=== PATIENT | female | born 1950 | race Caucasian/White ===

== ENCOUNTER 2024-12-16 01:13 | Emergency (ER) | payer MEDICARE, SELFPAY ==
[2024-12-16 01:13] VITALS: BMI 25.8
--- NOTE | 2024-12-16 01:19 | EKG_ITS ---
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
[2024-12-16 01:33] VITALS: BP 175/88; PULSE 69; RESP 18; TEMP 37.2; O2SAT 96
--- NOTE | 2024-12-16 01:56 | XR_ITS ---
Examination: PA chest single view TECHNIQUE: Upright PA chest single view Date and time: December 16, 2024 0209 hours INDICATIONS: Chest pain beginning 2 days ago with shortness of breath and coughing FINDINGS: Mild prominence left ventricle Accentuation bronchovascular markings. No lobar pneumonia Prominent osteopenia IMPRESSION: Perihilar basilar bronchitis pattern
--- NOTE | 2024-12-16 01:58 | PD.EDRME ---
Rapid Medical Screening Exam E Arrival date/time: 12/16/24 01:13 74F with history of CVA, HTN, and DM presents to ED with 2 days of CP, SOB, and cough. Chief Complaint: Chest Pain Time Seen by Provider: 12/16/24 01:55 Vital signs: Vital Signs Temperature 98.9 F 12/16/24 01:33 Pulse Rate 69 12/16/24 01:33 Respiratory Rate 18 12/16/24 01:33 Blood Pressure 175/88 H 12/16/24 01:33 Pulse Oximetry (%) 96 12/16/24 01:33 Oxygen Delivery Method Room Air 12/16/24 01:33
[2024-12-16 02:39] LABS: Basophils # (Auto) 0.1 Thou/mm3 (0.0-0.2); Basophils % (Auto) 1 % (0-2.5); Eosinophils # (Auto) 0.2 Thou/mm3 (0.0-0.5); Eosinophils % (Auto) 2 % (0-10); Hematocrit 36.3 % (36.0-46.0); Hemoglobin 12.4 g/dL (12.0-16.0); Immature Granulocytes % (Auto) 0 % (0-0); Immature Granulocytes Auto 0.03 Thou/mm3 (0.00-0.00); Lymphocytes # (Auto) 2.5 Thou/mm3 (1.0-4.8); Lymphocytes % (Auto) 27 % (10-50); Mean Corpuscular HGB Conc 34.2 g/dl (31.0-37.0); Mean Corpuscular Volume 88 fL (80-100); Monocytes # (Auto) 0.7 Thou/mm3 (0.0-0.8); Monocytes % (Auto) 8 % (0-12); Neutrophils # (Auto) 5.8 Thou/mm3 (1.8-7.7); Neutrophils % (Auto) 62 % (37-80); Nucleated Red Blood Cell % 0 /100 WBC (0); Platelet Count 149 Thou/mm3 (140-440); RDW Standard Deviation 41.3 fL (36.4-46.3); Red Blood Count 4.14 Miln/mm3 (4.00-5.20); White Blood Count 9.4 Thou/mm3 (3.6-11.0)
[2024-12-16 02:43] LABS: B-Type Natriuretic Peptide 36 pg/mL (0-100)
[2024-12-16 02:54] LABS: Alanine Aminotransferase 12 U/L (10-49); Albumin, Serum 3.9 gm/dL (3.4-4.8); Albumin/Globulin Ratio 1.6 (1.2-2.2); Alkaline Phosphatase 104 U/L (46-116); Anion Gap 6 (7-16); Aspartate Amino Transferase 15 U/L (0-34); BUN/Creatinine Ratio 17 Ratio (12-20); Bilirubin,Total 0.4 mg/dL (0.3-1.2); Blood Urea Nitrogen 17 mg/dL (9-23); Calcium 9.3 mg/dL (8.3-10.6); Calcium (Corrected) 9.4 mg/dL (8.5-10.1); Chloride 108 mMol/L (98-107); Estimated Creatinine Clearance 51.1 mL/min (>60); Globulin 2.5 gm/dL (2.3-3.5); Glucose 260 mg/dL (74-106); Osmolality,Calculated 293 (275-295); Potassium 3.9 mMol/L (3.4-5.1); Procalcitonin < 0.04 ng/ml (0.0-0.49); Sodium 142 mMol/L (136-145); Total Protein 6.4 gm/dL (5.7-8.2); eGFR 59 See Note
[2024-12-16 03:10] LABS: Troponin I 0.104 ng/mL (0.0-0.045)
--- NOTE | 2024-12-16 03:25 | PD.EDCHEST ---
ED Chest Pain RME/HPI General Chief Complaint: Chest Pain Stated Complaint: CHEST PAIN Time Seen by Provider: 12/16/24 01:55 Arrival date/time: 12/16/24 01:13 RME / HPI RME / HPI narrative: 12/16/24 01:13 74F with history of CVA, HTN, and DM presents to ED with 2 days of CP, SOB, and cough. -------- Dr. Quintero?s Main ED Evaluation: 74yo female with a history of HTN, HLD, DM presents to the ED for complaints of chest pain and shortness of breath x 2 days. Patient states her chest pain got progressively worse tonight and was unable to tolerate it, so she came in for evaluation. No radiation or migration. Patient reports associated cough and chronic BLE cramps 2/2 her diabetic neuropathy. Patient denies any N/V/D, fever, chills, abdominal pain or any other associated symptoms. Denies any tobacco, alcohol or illicit drug use. Related Data Home Medications ?Medication ?Instructions ?Recorded ?Confirmed lisinopril 20 mg tablet 40 mg PO DAILY 06/09/21 04/14/24 sertraline 50 mg tablet 50 mg PO HS 04/14/24 04/14/24 Previous Rx's ?Medication ?Instructions ?Recorded blood sugar diagnostic (Accu-Chek #100 ea 08/26/22 SmartView Test Strips) blood-glucose meter (OneTouch #1 ea 08/26/22 Solutions Starter kit) lancets 23 gauge (Acti-Jag #200 ea 08/26/22 Lancets) pen needle, diabetic 31 gauge x #100 ea 08/26/2207/03 (1st Tier Unifine Pentips) aluminum-mag hydroxide-simethicone 30 ml PO QID PRN acid reflux #355 09/30/22 400 mg-400 mg-40 mg/5 mL oral susp mL (Mag-Al Plus Extra Strength) meclizine 50 mg tablet 50 mg PO BID PRN dizziness #14 tabs 04/12/24 blood-glucose sensor (FreeStyle #1 ea 04/17/24 Chandan 3 Plus Sensor device) blood-glucose,video news editor,cont #1 ea 04/17/24 (FreeStyle Chandan 3 Ringsted) insulin glargine 100 unit/mL (3 27 unit (0.27 mL) subcut HS 30 04/17/24 mL) subcutaneous pen days #15 mL metformin 500 mg tablet 500 mg PO BIDWMEAL #60 tabs 04/17/24 aspirin 81 mg tablet,delayed 81 mg PO QDAY #21 tabs 04/19/24 release clopidogrel 75 mg tablet (Plavix) 75 mg PO QDAY #30 tabs 04/19/24 levofloxacin 750 mg tablet 750 mg PO Q24H 5 days #5 tabs 12/16/24 Allergies Allergy/AdvReac Type Severity Reaction Status Date / Time Penicillins Allergy Severe Hives Verified 12/12/23 12:07 Review of Systems Review of Systems Systems Reviewed: All systems reviewed, normal except as documented Past Medical History Past Medical History NEUROLOGIC: Negative Neurological Disorders or Seizures CARDIAC: Positive Cardiac Disorders, Atherosclerotic Heart Disease, Hypercholesterolemia and Hypertension; Negative Myocardial Infarction, Cardiac Arrhythmia, Atrial Fibrillation, Angina, Heart Murmur, Coronary Artery Disease, Peripheral Vascular Disease, Aneurysm, Congestive Heart Failure, Congenital Heart Disease, Valvular Heart Disease, Rheumatic Fever, Cardiomyopathy, Edema, Pericarditis, Cellulitis, Deep Vein Thrombosis, Hypotension or Varicose Veins RESPIRATORY: Positive Asthma; Negative Chronic Obstructive Pulmonary Disease (COPD) GASTROINTESTINAL: Negative Gastrointestinal Disorders or Hepatitis GENITOURINARY: Negative Genitourinary Disorders or Renal Disease REPRODUCTIVE: Negative Pelvic Inflammatory Disease MUSCULOSKELETAL: Positive Fractures; Negative Muscular Dystrophy, Myasthenia Gravis, Marfan's Syndrome, Arthritis, Rheumatoid Arthritis, Osteoporosis, Degenerative Disk Disease, Gout, Scoliosis, Fibromyalgia, Degenerative Joint Disease, Osteomyelitis or Poliovirus ENT: Negative Cataracts, Glaucoma, Blind, Retinal Detachment, Macular Degeneration, Ear Infection or Deafness ENDOCRINE: Positive Diabetes Mellitus Type 2; Negative Endocrine Disorders, Diabetes Mellitus Type 1, Hypoglycemia, Roxy's Syndrome, [place]'s Disease, Hyperthyroidism, Hypothyroidism, Parathyroid Disease, Pituitary Disease, Systemic Lupus Erythematosus, Syndrome of Inappropriate Antidiuretic Hormone (SIADH), Adrenal Disease or Graves' Disease HEMATOLOGIC: Negative Blood Disorders or Sickle Cell Disease PSYCHO/SOCIAL: Positive Depression and Anxiety; Negative Psychiatric Problems, Schizophrenia, Recreational Drug Use, Bipolar Disorder, Self-Mutilation, Attention Deficit Disorder, Attention Deficit Hyperactivity Disorder, Depression, Post Traumatic Stress Disorder or Eating Disorder OTHER HISTORY: Positive Hospitalization and Falls; Negative Autoimmune Disease, Autism, Blood Transfusions, Blood Transfusion Reaction, Anesthesia Reactions, Organ Transplant, Chemotherapy, Radiation Therapy, Hyperbaric Therapy, MRSA, VRSA, Vancomycin-Resistant Enterococci, Human Immunodeficiency Virus (HIV), Chicken Pox, Measles, Mumps, Rubella (Persian Measles), Pertussis, Clostridium Difficile or Cancer Family History FAMILY HISTORY: Positive Family Cardiac Disorders; Negative Family Psychiatric Problems, Family Respiratory Disorders, Family Gastrointestinal Problems, Family Cancer, Family Surgery or Family Anesthesia Reaction Surgical History SURGICAL: Negative Cardiac Surgery, Pacemaker, Endocrine Surgery, Thyroidectomy, Ear Surgery, Tympanostomy Tube, Eye Surgery, Nose Surgery, Oral Surgery, Tonsillectomy, Adenoidectomy, Cochlear Implant, Corneal Transplant, Throat Surgery, Abdominal Surgery, Tracheostomy, Nephrectomy, Neurologic Surgery, Mastectomy or Organ Transplant Social History SMOKING STATUS: Never smoker SECOND HAND EXPOSURE: Yes ED Exam Narrative Physical exam: GEN. APPEARANCE: The patient is alert awake oriented X-3 in no distress, lying down comfortably, does not look ill/toxic. Patient has good eye contact. Patient is cooperative. VITALS: All vitals were reviewed and the pulse ox is 96% on room air which is normal according to my interpretation. HEENT: Normocephalic, atraumatic. Pupils are equal and reactive. Oral mucosa is moist. Patent Nares NECK: Supple, nontender, no thyromegaly, no meningismus, no JVD CHEST: Symmetrical, atraumatic, and with equal expansion , Nontender on palpation no deformity and no crepitus. CARDIOVASCULAR: Heart regular rhythm no murmur or gallop rub or extra beats. LUNGS: Clear to auscultation bilaterally with symmetrical chest rise. No laboring tachypnea or wheezing. No intercostal subcostal retraction. No rales and no rhonchi. ABDOMEN: Soft, flat, nontender to palpation, no guarding or rebound tenderness. There are no abnormal masses palpated. Active and normal bowel sounds. EXTREMITIES: Nontender. No edema. No cyanosis. Patient is able to move all 4 extremities well, with full ROM and good CSM. SKIN: Warm and dry, no jaundice or rashes noted. NEURO: Patient is GRULLON x 4, Cranial nerves II through XII grossly intact. There is no focal neurologic deficits noted. GCS is 15, PNS and ABATEMENT WORKER appear grossly intact. PSYCHIATRIC: Patient is in normal mood and affect. Course Course Course Narrative: CXR is ordered for determining the etiology of chest pain. Quality Measures none Orders Category Date Time Status Bedside COVID-19 Antigen Test NOW Care 12/16/24 01:57 Active Bedside Influenza A&B Antigen Test NOW Care 12/16/24 01:57 Completed EKG (ED ONLY) *Do not use* NOW Care 12/16/24 01:19 Completed EKG (ED Only) Stat Exams 12/16/24 01:19 Draft XR chest 1V portable Stat Exams 12/16/24 01:56 Taken B-Type Natriuretic Peptide Stat Lab 12/16/24 02:08 Completed CBC Stat Lab 12/16/24 02:08 Completed Comprehensive Metabolic Panel Stat Lab 12/16/24 02:08 Completed Procalcitonin Stat Lab 12/16/24 02:08 Completed Troponin I Stat Lab 12/16/24 02:08 Completed Troponin I Stat Lab 12/16/24 04:48 Completed HYDROcodone*/APAP 5/325 [[place] 5/325] Med 12/16/24 05:42 Discontinued 1 tab PO X1 ONE Levofloxacin/D5w 750Mg Ivpb [Levaquin Ivpb] Med 12/16/24 04:04 Discontinued 750 mg in 150 ml IV NOW Vital Signs Vital signs: Vital Signs Temperature 98.9 F 12/16/24 01:33 Pulse Rate 69 12/16/24 01:33 Respiratory Rate 18 12/16/24 01:33 Blood Pressure 175/88 H 12/16/24 01:33 Pulse Oximetry (%) 96 12/16/24 01:33 Oxygen Delivery Method Room Air 12/16/24 01:33 Chest Pain MDM Narrative MDM Narrative:: Scribe Attestation: 12/16/24 - Coco Vital am scribing for and in the presence of Dr. Quintero. Patient is a 73-year-old female seen emerged from concerns for shortness of breath and chest pain. Has a sick contact at home with pneumonia. Vital signs and exam as above. Concern for ACS with electrolyte abnormality bowel syndrome pneumonia among others. Ordered labs EKG chest x-ray after medication for symptomatic. Labs without any acute significant hematologic or metabolic abnormality. Patient troponin elevated, however not elevated beyond her baseline. EKG without evidence of ischemia or arrhythmia. Delta troponin downtrended. Chest x-ray with evidence of pneumonia. Provided patient with antibiotics, however evaluation patient exam with stable not in distress, tolerating oral intake, breathing room air. Will discharge home with close return precautions and follow-up with her primary care doctor Patient data External records reviewed:: [facility] previous records (Per chart review, patient was admitted here on 04/13/24 for acute right-sided weakness.) Clinical information provided by:: patient Social determinants that could affect healthcare access:: none Patient has the following chronic illnesses:: DM, HTN, HLD How is presenting disease/condition affected by chronic disease/condition?: uneffected by Evaluation data The following diagnostics were reviewed and interpreted by me:: lab results, radiology exam(s) and EKG tracing(s) Lab and/or radiology exams considered but not ordered:: none Interpretation Summary: COVID/Influenza negative. CBC normal, Glucose 260, Troponin 0.104 (which is chronic), BNP normal, Procalcitonin normal. Repeat Troponin is 0.106. CXR shows bilateral infiltrates, no pneumothorax, no other bony abnormalities, according to my interpretation. EKG done at 0132, NSR, rate of 68, normal intervals, nonspecific ST-T changes, no acute ischemia, according to my interpretation. Medications / Prescriptions Medications or Prescriptions considered but not ordered:: none Medication administrations:: Medication Administration History Discontinued Medications Hydrocodone Bitart/Acetaminophen (Hydrocodone/Apap 5/325 Tablet) 1 tab PO X1 ONE Stop: 12/16/24 05:43 Last Admin: 12/16/24 05:48 Dose: 1 tab Documented By: SHAMIR Levofloxacin/Dextrose (Levaquin Ivpb) 750 mg in 150 mls @ 100 mls/hr IV NOW ONE Stop: 12/16/24 05:33 Last Admin: 12/16/24 05:01 Dose: 100 mls/hr Documented By: DAMARIS see above Consultations Consultation(s) initiated? (list below): No Diagnosis Chest Pain Differential Diagnosis: other (ACS, arrhythmia, electrolyte abnormality, viral syndrome, pneumonia) Most likely diagnosis given after review of the tests above:: see clinical impression below Admission Indicated Admission indicated?: not indicated Admission Request Was there a request for admission?: No Disposition Plan Disposition Plan: Discharge Discharge Attestation Discharge Attestation: The patient and all family members were given an opportunity to ask questions and understood the discharge instructions. Discharge instructions specifically effects, indications for sooner follow up or return to the emergency department, and the expected course of current diagnosis. Patient condition: Stable Discharge Plan Plan Patient Disposition: HOME (Self Care) Prescriptions/Referrals Prescriptions/Med Rec: New levofloxacin 750 mg tablet 750 mg PO Q24H 5 Days Qty: 5 0RF No Action lisinopril 20 mg tablet 40 mg PO DAILY (DME) blood-glucose meter [Pagevamp Starter] Kit See Rx Instructions .Route Qty: 1 0RF Rx Instructions: As directed (DME) Accu-Chek SmartView Test Strip Strip See Rx Instructions .Route Qty: 100 2RF Rx Instructions: As directed (DME) Acti-Jag Lancets 23 gauge misc See Rx Instructions .Route Qty: 200 2RF Rx Instructions: As directed (DME) pen needle, diabetic [1st Tier Unifine Pentips] 31 gauge x 1/4 needle See Rx Instructions .Route Qty: 100 2RF Rx Instructions: As directed alum-mag hydroxide-simeth [Mag-Al Plus Extra Strength] 400-400-40 mg/5 mL Suspension 30 ml PO QID PRN (Reason: acid reflux) Qty: 355 1RF sertraline 50 mg tablet 50 mg PO HS Patient Comments: TAKE ONE TABLET BY MOUTH EVERY DAY insulin glargine 100 unit/mL (3 mL) insulin pen 27 unit subcut HS 30 Days Qty: 15 2RF metformin 500 mg tablet 500 mg PO BIDWMEAL Qty: 60 0RF (DME) FreeStyle Chandan 3 Ringsted Misc See Rx Instructions .ROUTE Qty: 1 0RF Rx Instructions: As directed (DME) FreeStyle Chandan 3 Plus Sensor Device See Rx Instructions .ROUTE Qty: 1 0RF Rx Instructions: As directed aspirin 81 mg tablet,delayed release (DR/EC) 81 mg PO QDAY Qty: 21 0RF clopidogrel [Plavix] 75 mg tablet 75 mg PO QDAY Qty: 30 0RF meclizine 50 mg tablet 50 mg PO BID PRN (Reason: dizziness) Qty: 14 0RF Referrals: Jovanny Jackson MD [Primary Care Provider] - In 1 week Problem List Clinical Impression: Pneumonia Patient/Caregiver Discharge Instructions Education Materials: ED Pneumonia (Adult) Print Language: Malay Stand Alone Forms: Kaylin Award Info., Patient Portal Info Letter
[2024-12-16] MEDS: LEVOFLOXACIN/D5W 750MG IVPB 750 MG/150 ML BAG 100 MG IV (05:01)
[2024-12-16] MEDS: HYDROcodone/APAP 5/325 TABLET 1 TAB PO (05:48)
[2024-12-16 05:50] VITALS: BP 177/87; PULSE 61; RESP 18; O2SAT 99
[2024-12-16 06:12] LABS: Troponin I 0.106 ng/mL (0.0-0.045)
[2024-12-16 06:48] VITALS: BP 177/87; O2SAT 99
== END 2024-12-16 06:50 | disposition home or self-care (01) ==
PROVIDERS: Physician Assistant; Emergency Provider Emergency Medicine; PCP Family Medicine
DX: J18.9 Pneumonia, unspecified organism (principal); I45.89 Other specified conduction disorders; R06.02 Shortness of breath; I10 Essential (primary) hypertension; E78.00 Pure hypercholesterolemia, unspecified; I25.10 Atherosclerotic heart disease of native coronary artery without angina pectoris; Z79.02 Long term (current) use of antithrombotics/antiplatelets
CPT/HCPCS: 36415; 71045; 80053; 83880; 84145; 84484; 85025; 87400; 87811; 93005; 96365; 99284; J1956; A9270

== ENCOUNTER 2024-12-22 04:12 | Emergency (ER) | payer MEDICARE, SELFPAY ==
[2024-12-22 04:13] VITALS: BMI 25.8
[2024-12-22 04:34] VITALS: BP 170/90; PULSE 60; RESP 16; TEMP 37.1; O2SAT 98
--- NOTE | 2024-12-22 04:43 | XR_ITS ---
Examination: CT cervical spine without contrast 2-D sagittal reconstructions 2-D coronal reconstructions 3-D reconstructions. Exam date and time:December 22, 2024 at 0601 hours INDICATIONS: Patient fell 3 days ago with injury to the neck, neck pain CTDI:vol (mGy) 7.91 DLP: (mGycm) 156 Technique: Multiple 2 mm axial sections of the cervical spine have been obtained. The coronal and sagittal reconstructions have been obtained. 3-D reconstructions have been obtained. Low dose protocols were performed. One or more of the following dose reduction techniques were used; automated exposure control, adjustment of the mA and/or KV according to patient size, use of iterative reconstruction technique. Findings: Axial sections demonstrate intact base of the skull. Advanced degenerative disc disease C5-C6 C1 exhibit satisfactory relationship to the odontoid. No acute cervical vertebral body fracture seen. Alignment posterior spinous processes satisfactory. Impression: No acute cervical fracture.
--- NOTE | 2024-12-22 04:43 | XR_ITS ---
Examination: CT chest, without intravenous contrast. CT abdomen, without intravenous contrast. CT pelvis, without intravenous contrast. 2-D sagittal and coronal reconstructions. 3-D reconstructions. Date and time of exam:December 22, 2024 at 0603 hours INDICATIONS: Patient fell 3 days ago with injury to the chest and abdomen, chest pain and abdomen pain CTDI vol (mgy) 7.70 DLP (MGycm)538 Technique: Multiple CT images, 3.0 mm slice thickness, obtained chest, abdomen, pelvis, with the high-resolution 64 slice scanner.. Sagittal and coronal 2-D reconstructions are obtained. 3-D reconstructions Low dose protocols were performed. One or more of the following dose reduction techniques were used; automated exposure control, adjustment of the mA and/or KV according to patient size, use of iterative reconstruction technique. Findings: Thoracic aorta and pulmonary arteries intact Trace pericardial thickening Bilateral areas of subsegmental atelectasis No pneumothorax No hemothorax The manubrium, the body of the sternum are intact No acute thoracic lumbar or sacral segment fractures are depicted No abdominal parenchymal laceration Abdominal aorta intact No free blood in the abdomen or pelvis 18mm mass lateral left breast 3:00 position with spiculated margins, axial image 64, stranding extending to the skin in the nipple region with enlarged left axillary lymph nodes, the largest lymph node 19 mm No visualized liver or splenic or renal laceration on this noncontrast study Abdominal aortic calcification no free blood in the abdomen Normal appendix Negative for pneumoperitoneum Retroverted uterus with markedly abnormal thickened endometrial stripe, at least 28 mm Urinary bladder intact Multiple bilateral old rib fractures Suspicious for nondisplaced acute fracture right fifth rib anteriorly image 104 Bones of the pelvis hips intact, old fractures left superior and inferior pubic rami IMPRESSION: Thoracic aorta pulmonary arteries intact No pneumothorax or hemothorax Suspicious for nondisplaced acute fracture right fifth rib anteriorly 18 mm spiculated mass left breast with left axillary lymphadenopathy suspicious for primary left breast cancer with metastatic lymphadenopathy Recommend diagnostic mammography bilateral breast sonography follow-up
--- NOTE | 2024-12-22 04:43 | XR_ITS ---
Examination: CT brain head without contrast. 2-D sagittal coronal reconstructions Date and time of exam:December 22, 2024 at 0559 hours INDICATIONS: Patient fell 3 days ago with injury to the head, head pain CTDI: vol (mGy):50.7 DLP: (mGycm):1013 Technique: Multiple CT axial sections of the brain have been obtained, 5 mm slice thickness. Contrast has not been administered. 2-D sagittal, coronal reconstructions have been obtained Low dose protocols were performed. One or more of the following dose reduction techniques were used; automated exposure control, adjustment of the mA and/or KV according to patient size, use of iterative reconstruction technique. Findings: No significant ventricular enlargement. Intra-axial or extra-axial hemorrhage density is not seen. No mass effect or midline shift Basal cisterns are not remarkable. Fourth ventricle is midline. Cranial vault intact. Impression: Negative for acute hemorrhage, mass effect or midline shift
--- NOTE | 2024-12-22 04:43 | PD.EDRME ---
Rapid Medical Screening Exam [facility] Arrival date/time: 12/22/24 04:12 74F with history of CVA, HTN, and DM presents to ED with head, neck, back and chest pain after she slipped and fell about 3 days ago. Patient denies LOC and N/V. Chief Complaint: Fall Vital signs: Vital Signs Temperature 98.8 F 12/22/24 04:34 Pulse Rate 60 12/22/24 04:34 Respiratory Rate 16 12/22/24 04:34 Blood Pressure 170/90 H 12/22/24 04:34 Pulse Oximetry (%) 98 12/22/24 04:34 Oxygen Delivery Method Room Air 12/22/24 04:34
--- NOTE | 2024-12-22 05:29 | PC.NURSE ---
PT COMING UP TO NURSES STATION, RAISING HER VOICE SAYING SHE CAME IN FOR CHEST PAIN AND THAT THIS HOSPITAL IS NOT DOING ANYTHING ABOUT IT, JUST PLACING HER IN THE WAITING ROOM TO . DOCUMENTING NURSE TOLD PT THE PROVIDER ORDERED SCANS FOR THE FALL SHE CAME IN COMPLAINING OF. PT THEN BEGAN TO SAY THAT SHES NOT WAITING ALL NIGHT FOR A ZUNIGA CT SCAN BECAUSE LAST TIME SHE WAS HERE SHE WAS HERE FOR 8 HOURS. PT WENT OUT SIDE THEN CAME RIGHT BACK IN DEMANDING EVERYONES NAMES TO BE WRITTEN DOWN FOR HER. DOCUMENTING NURSE TOLD PT HER NAME BUT THAT SHE WILL NOT WRITE IT DOWN FOR HER. PT FAMILY MEMBER TOLD PT TO CALM DOWN AND TOOK PT BACK OUTSIDE TO CALM DOWN.
--- NOTE | 2024-12-22 08:15 | XR_ITS ---
Examination: Breast ultrasound, unilateral, left complete Date and time of exam: December 22, 2024 0850 hours INDICATIONS: CT examination December 22, 2024 18 mm spiculated mass left breast with left axillary lymphadenopathy Technique: Real-time moore scale ultrasonographic imaging performed left breast including all 4 quadrants as well as nipple retroareolar and axillary region. Findings: 1:00 nodule left breast indistinct margins 15 x 13 x 18 mm Abnormal left axillary lymph nodes with architectural distortion IMPRESSION: BI-RADS Category 4: Suspicious for malignancy Suspicious mass 1:00 position left breast with abnormal left axillary lymphadenopathy Biopsy of the 1:00 nodule is needed to exclude breast carcinoma as well as biopsy of one of the abnormal left axillary lymph nodes Follow-up diagnostic mammography strongly recommended
[2024-12-22 08:31] LABS: Basophils # (Auto) 0.1 Thou/mm3 (0.0-0.2); Basophils % (Auto) 1 % (0-2.5); Eosinophils # (Auto) 0.3 Thou/mm3 (0.0-0.5); Eosinophils % (Auto) 3 % (0-10); Hemoglobin 13.6 g/dL (12.0-16.0); Immature Granulocytes % (Auto) 0 % (0-0); Immature Granulocytes Auto 0.03 Thou/mm3 (0.00-0.00); Lymphocytes # (Auto) 3.6 Thou/mm3 (1.0-4.8); Lymphocytes % (Auto) 35 % (10-50); Mean Corpuscular HGB Conc 33.2 g/dl (31.0-37.0); Mean Corpuscular Hemoglobin 29.8 pg (25.0-35.0); Mean Corpuscular Volume 90 fL (80-100); Monocytes # (Auto) 0.8 Thou/mm3 (0.0-0.8); Monocytes % (Auto) 7 % (0-12); Neutrophils # (Auto) 5.7 Thou/mm3 (1.8-7.7); Neutrophils % (Auto) 54 % (37-80); Nucleated Red Blood Cell % 0 /100 WBC (0); Platelet Count 183 Thou/mm3 (140-440); Red Blood Count 4.56 Miln/mm3 (4.00-5.20); White Blood Count 10.5 Thou/mm3 (3.6-11.0)
[2024-12-22 08:50] LABS: Sed Rate (ESR) 20 mm/hr (0-30)
[2024-12-22 09:12] LABS: Alanine Aminotransferase 14 U/L (10-49); Albumin, Serum 4.2 gm/dL (3.4-4.8); Albumin/Globulin Ratio 1.5 (1.2-2.2); Alkaline Phosphatase 98 U/L (46-116); Anion Gap 7 (7-16); Aspartate Amino Transferase 18 U/L (0-34); BUN/Creatinine Ratio 20 Ratio (12-20); Bilirubin,Total 0.7 mg/dL (0.3-1.2); Blood Urea Nitrogen 18 mg/dL (9-23); C-Reactive Protein < 0.5 mg/dL (0.0-0.9); Calcium 9.9 mg/dL (8.3-10.6); Calcium (Corrected) 9.9 mg/dL (8.5-10.1); Chloride 103 mMol/L (98-107); Creatinine (Component) 0.9 mg/dL (0.6-1.3); Estimated Creatinine Clearance 56.8 mL/min (>60); Globulin 2.8 gm/dL (2.3-3.5); Glucose 153 mg/dL (74-106); Osmolality,Calculated 284 (275-295); Potassium 4.2 mMol/L (3.4-5.1); Sodium 140 mMol/L (136-145); eGFR > 60 See Note
[2024-12-22 09:50] VITALS: BP 174/92; PULSE 60; RESP 18; TEMP 36.6; O2SAT 97
--- NOTE | 2024-12-22 09:56 | PD.EDFALL ---
ED Fall Injury RME/HPI General Chief Complaint: Fall Stated Complaint: FALL X 3 DAYS AGO Time Seen by Provider: 12/22/24 09:36 Arrival date/time: 12/22/24 04:12 74F with history of CVA, HTN, and DM presents to ED with head, neck, back and chest pain after she slipped and fell about 3 days ago. Patient denies LOC and N/V. Limitations: no limitations RME / HPI RME / HPI Narrative: 12/22/24 04:12 74F with history of CVA, HTN, and DM presents to ED with head, neck, back and chest pain after she slipped and fell about 3 days ago. Patient denies LOC and N/V. Related Data Home Medications ?Medication ?Instructions ?Recorded ?Confirmed lisinopril 20 mg tablet 40 mg PO DAILY 06/09/21 04/14/24 sertraline 50 mg tablet 50 mg PO HS 04/14/24 04/14/24 Previous Rx's ?Medication ?Instructions ?Recorded blood sugar diagnostic (Accu-Chek #100 ea 08/26/22 SmartView Test Strips) blood-glucose meter (OneTouch #1 ea 08/26/22 Solutions Starter kit) lancets 23 gauge (Acti-Jag #200 ea 08/26/22 Lancets) pen needle, diabetic 31 gauge x #100 ea 08/26/2207/03 (1st Tier Unifine Pentips) aluminum-mag hydroxide-simethicone 30 ml PO QID PRN acid reflux #355 09/30/22 400 mg-400 mg-40 mg/5 mL oral susp mL (Mag-Al Plus Extra Strength) meclizine 50 mg tablet 50 mg PO BID PRN dizziness #14 tabs 04/12/24 blood-glucose sensor (FreeStyle #1 ea 04/17/24 Chandan 3 Plus Sensor device) blood-glucose,transportation technician,cont #1 ea 04/17/24 (FreeStyle Chandan 3 [place]) insulin glargine 100 unit/mL (3 27 unit (0.27 mL) subcut HS 30 04/17/24 mL) subcutaneous pen days #15 mL metformin 500 mg tablet 500 mg PO BIDWMEAL #60 tabs 04/17/24 aspirin 81 mg tablet,delayed 81 mg PO QDAY #21 tabs 04/19/24 release clopidogrel 75 mg tablet (Plavix) 75 mg PO QDAY #30 tabs 04/19/24 Allergies Allergy/AdvReac Type Severity Reaction Status Date / Time Penicillins Allergy Severe Hives Verified 12/12/23 12:07 Review of Systems Review of Systems Systems Reviewed: All systems reviewed, normal except as documented Constitutional Constitutional: Reports system reviewed and no additional complaints, except as documented, Denies fever(s) and Denies headache(s) Eyes Eyes: Reports system reviewed and no additional complaints, except as documented and Denies blurry vision ENT Ears, Nose, Mouth, and Throat: Reports system reviewed and no additional complaints, except as documented, Denies headache(s), Denies nasal congestion, Denies nasal discharge and Reports neck pain Cardiovascular Cardiovascular: Reports system reviewed and no additional complaints, except as documented, Denies chest pain and Denies dyspnea Respiratory Respiratory: Reports system reviewed and no additional complaints, except as documented, Denies chest congestion, Denies cough and Denies dyspnea Gastrointestinal Gastrointestinal: Reports system reviewed and no additional complaints, except as documented and Denies abdominal pain Musculoskeletal Musculoskeletal: Reports system reviewed and no additional complaints, except as documented, Denies arthralgias, Reports back pain, Denies deformity, Denies joint swelling, Reports neck pain, Denies numbness, Denies stiffness and Denies tingling Integumentary/Breasts Skin/Breast: Reports system reviewed and no additional complaints, except as documented and Denies rash Neurologic Neurologic: Reports system reviewed and no additional complaints, except as documented, Reports as per HPI, Denies headache(s), Denies numbness and Denies tingling Past Medical History Past Medical History NEUROLOGIC: Negative Neurological Disorders or Seizures CARDIAC: Positive Cardiac Disorders, Atherosclerotic Heart Disease, Hypercholesterolemia and Hypertension; Negative Myocardial Infarction, Cardiac Arrhythmia, Atrial Fibrillation, Angina, Heart Murmur, Coronary Artery Disease, Peripheral Vascular Disease, Aneurysm, Congestive Heart Failure, Congenital Heart Disease, Valvular Heart Disease, Rheumatic Fever, Cardiomyopathy, Edema, Pericarditis, Cellulitis, Deep Vein Thrombosis, Hypotension or Varicose Veins RESPIRATORY: Positive Asthma; Negative Chronic Obstructive Pulmonary Disease (COPD) GASTROINTESTINAL: Negative Gastrointestinal Disorders or Hepatitis GENITOURINARY: Negative Genitourinary Disorders or Renal Disease REPRODUCTIVE: Negative Pelvic Inflammatory Disease MUSCULOSKELETAL: Positive Fractures; Negative Muscular Dystrophy, Myasthenia Gravis, Marfan's Syndrome, Arthritis, Rheumatoid Arthritis, Osteoporosis, Degenerative Disk Disease, Gout, Scoliosis, Fibromyalgia, Degenerative Joint Disease, Osteomyelitis or Poliovirus ENT: Negative Cataracts, Glaucoma, Blind, Retinal Detachment, Macular Degeneration, Ear Infection or Deafness ENDOCRINE: Positive Diabetes Mellitus Type 2; Negative Endocrine Disorders, Diabetes Mellitus Type 1, Hypoglycemia, Roxy's Syndrome, [place]'s Disease, Hyperthyroidism, Hypothyroidism, Parathyroid Disease, Pituitary Disease, Systemic Lupus Erythematosus, Syndrome of Inappropriate Antidiuretic Hormone (SIADH), Adrenal Disease or Graves' Disease HEMATOLOGIC: Negative Blood Disorders or Sickle Cell Disease PSYCHO/SOCIAL: Positive Depression and Anxiety; Negative Psychiatric Problems, Schizophrenia, Recreational Drug Use, Bipolar Disorder, Self-Mutilation, Attention Deficit Disorder, Attention Deficit Hyperactivity Disorder, Depression, Post Traumatic Stress Disorder or Eating Disorder OTHER HISTORY: Positive Hospitalization and Falls; Negative Autoimmune Disease, Autism, Blood Transfusions, Blood Transfusion Reaction, Anesthesia Reactions, Organ Transplant, Chemotherapy, Radiation Therapy, Hyperbaric Therapy, MRSA, VRSA, Vancomycin-Resistant Enterococci, Human Immunodeficiency Virus (HIV), Chicken Pox, Measles, Mumps, Rubella ([place]ish Measles), Pertussis, Clostridium Difficile or Cancer Family History FAMILY HISTORY: Positive Family Cardiac Disorders; Negative Family Psychiatric Problems, Family Respiratory Disorders, Family Gastrointestinal Problems, Family Cancer, Family Surgery or Family Anesthesia Reaction Surgical History SURGICAL: Negative Cardiac Surgery, Pacemaker, Endocrine Surgery, Thyroidectomy, Ear Surgery, Tympanostomy Tube, Eye Surgery, Nose Surgery, Oral Surgery, Tonsillectomy, Adenoidectomy, Cochlear Implant, Corneal Transplant, Throat Surgery, Abdominal Surgery, Tracheostomy, Nephrectomy, Neurologic Surgery, Mastectomy or Organ Transplant Social History SMOKING STATUS: Never smoker SECOND HAND EXPOSURE: Yes ED Exam General Limitations: Present no limitations General appearance: Present alert and in no apparent distress Head Head exam: Present atraumatic, normocephalic and normal inspection Eye Eye exam: Present normal appearance, PERRL and EOMI; Absent conjunctival injection ENT ENT exam: Present normal exam, normal oropharynx and mucous membranes moist Neck Neck exam: Present normal inspection, full ROM, trachea midline and tenderness Chest Chest inspection: Present normal inspection and symmetric chest wall rise Respiratory Respiratory exam: Present normal lung sounds bilaterally; Absent respiratory distress Cardiovascular Cardiovascular exam: Present regular rate, normal rhythm and normal heart sounds Abdominal Exam Abdominal exam: Present soft and normal bowel sounds; Absent distention, tenderness, guarding, rebound or rigidity Extremities Exam Extremities exam: Present normal inspection and full ROM Back Exam Back exam: Present normal inspection and full ROM Neurological Exam Neurological exam: Present alert, oriented X3, CN II-XII intact, normal gait and reflexes normal; Absent motor sensory deficit Psychiatric Psychiatric exam: Present normal affect and normal mood Skin Skin exam: Present warm, dry, intact and normal color; Absent rash Course Quality Measures none Orders Category Date Time Status CT cervical spine wo con Stat Exams 12/22/24 04:[address] chest abdomen pelvis wo Stat Exams 12/22/24 04:[address] head/brain wo con Stat Exams 12/22/24 04:43 Completed US breast LT complete Stat Exams 12/22/24 08:15 Completed CBC [CBC] Stat Lab 12/22/24 08:21 Completed CMP [Comprehensive Metabolic Panel] Stat Lab 12/22/24 08:21 Completed CRP [C-Reactive Protein] Stat Lab 12/22/24 08:21 Completed ESR [Sed Rate (ESR)] Stat Lab 12/22/24 08:21 Completed Vital Signs Vital signs: Vital Signs Temperature 98.8 F 12/22/24 04:34 Pulse Rate 60 12/22/24 04:34 Respiratory Rate 16 12/22/24 04:34 Blood Pressure 170/90 H 12/22/24 04:34 Pulse Oximetry (%) 98 12/22/24 04:34 Oxygen Delivery Method Room Air 12/22/24 04:34 O2 saturation 98% on room air with normal limits Fall MDM Narrative MDM Narrative:: 74F with history of CVA, HTN, and DM presents to ED with head, neck, back and chest pain after she slipped and fell about 3 days ago. Patient denies LOC and N/V. On exam patient well-appearing patient does not appear toxic Imaging obtained incidental finding was noted on CT scan abnormality in the breast. Ultrasound of the breast obtained which is concerning for carcinoma Patient given a copy of her ultrasound as well as CT reports patient instructed to follow-up with her primary care doctor within the next 24 to 48 hours she must have close follow-up explained to the patient failure to do so can result in poor outcome including patient states understanding Patient data External records reviewed:: [facility] [place] previous records Clinical information provided by:: patient Social determinants that could affect healthcare access:: none Patient has the following chronic illnesses:: See history How is presenting disease/condition affected by chronic disease/condition?: uneffected by Evaluation data The following diagnostics were reviewed and interpreted by me:: radiology exam(s) Lab and/or radiology exams considered but not ordered:: Radiology obtain Interpretation Summary: Reviewed by me Medications / Prescriptions Medications or Prescriptions considered but not ordered:: Given Medication administrations:: Given Consultations Consultation(s) initiated? (list below): No Diagnosis Fall Differential Diagnosis: other (Back pain, rib pain, breast pain, carcinoma) Most likely diagnosis given after review of the tests above:: Back pain, rib pain, breast pain Admission Indicated Admission indicated?: not indicated Admission Request Was there a request for admission?: No Disposition Plan Disposition Plan: Discharge Discharge Attestation Discharge Attestation: The patient and all family members were given an opportunity to ask questions and understood the discharge instructions. Discharge instructions specifically effects, indications for sooner follow up or return to the emergency department, and the expected course of current diagnosis. Patient condition: Stable Discharge Plan Plan Patient Disposition: HOME (Self Care) Discharge Disposition comment: Stable Prescriptions/Referrals Prescriptions/Med Rec: No Action lisinopril 20 mg tablet 40 mg PO DAILY (DME) blood-glucose meter [[employer] Starter] Kit See Rx Instructions .Route Qty: 1 0RF Rx Instructions: As directed (DME) Accu-Chek SmartView Test Strip Strip See Rx Instructions .Route Qty: 100 2RF Rx Instructions: As directed (DME) Acti-Jag Lancets 23 gauge misc See Rx Instructions .Route Qty: 200 2RF Rx Instructions: As directed (DME) pen needle, diabetic [1st Tier Unifine Pentips] 31 gauge x 1/4 needle See Rx Instructions .Route Qty: 100 2RF Rx Instructions: As directed alum-mag hydroxide-simeth [Mag-Al Plus Extra Strength] 400-400-40 mg/5 mL Suspension 30 ml PO QID PRN (Reason: acid reflux) Qty: 355 1RF sertraline 50 mg tablet 50 mg PO HS Patient Comments: TAKE ONE TABLET BY MOUTH EVERY DAY insulin glargine 100 unit/mL (3 mL) insulin pen 27 unit subcut HS 30 Days Qty: 15 2RF metformin 500 mg tablet 500 mg PO BIDWMEAL Qty: 60 0RF (DME) FreeStyle Chandan 3 [place] Misc See Rx Instructions .ROUTE Qty: 1 0RF Rx Instructions: As directed (DME) FreeStyle Chandan 3 Plus Sensor Device See Rx Instructions .ROUTE Qty: 1 0RF Rx Instructions: As directed aspirin 81 mg tablet,delayed release (DR/EC) 81 mg PO QDAY Qty: 21 0RF clopidogrel [Plavix] 75 mg tablet 75 mg PO QDAY Qty: 30 0RF meclizine 50 mg tablet 50 mg PO BID PRN (Reason: dizziness) Qty: 14 0RF Referrals: Jovanny Jackson MD [Primary Care Provider] - In 1 week Problem List Clinical Impression: Closed head injury, Fall, Breast mass, left Patient/Caregiver Discharge Instructions Education Materials: After a Concussion Additional Instructions: Please follow up with your primary care doctor in the next 24-48hrs for any worsening symptoms return here immediately Please bring copy of your CT report as well as your ultrasound report to your primary care doctor within the next 24 to 48 hours you must have close follow-up failure to do so can result in a poor outcome including Print Language: Guamanian Stand Alone Forms: Kaylin Award Info., Patient Portal Info Letter PA/MONKEY TRAINER Supervising Physician JOSAFAT/ROSEMARY Supervising Physician: dr hassan
== END 2024-12-22 10:05 | disposition home or self-care (01) ==
PROVIDERS: Nurse Practitioner Primary Care; Emergency Provider Emergency Medicine; PCP Family Medicine
DX: S09.90XA Unspecified injury of head, initial encounter (principal); W01.0XXA Fall on same level from slipping, tripping and stumbling without subsequent striking against object, initial encounter; Z86.73 Personal history of transient ischemic attack (TIA), and cerebral infarction without residual deficits; R59.0 Localized enlarged lymph nodes; N63.21 Unspecified lump in the left breast, upper outer quadrant; I10 Essential (primary) hypertension; E11.9 Type 2 diabetes mellitus without complications
CPT/HCPCS: 36415; 70450; 71250; 72125; 74176; 76641; 80053; 85025; 85652; 86140; 99284

== ENCOUNTER 2025-02-23 22:34 | Emergency (ER) | payer OTHER, SELFPAY ==
[2025-02-23 22:36] VITALS: BMI 25.8
[2025-02-23 22:55] VITALS: BP 148/69; PULSE 73; RESP 16; TEMP 36.6; O2SAT 95
--- NOTE | 2025-02-23 23:23 | XR_ITS ---
Examination: CT brain head without contrast. 2-D sagittal coronal reconstructions Date and time of exam:February 23, 2025 11:39 PM Comparison December 22, 2024 Ground-level fall today with injury to the head, head pain CTDI: vol (mGy):50.1 DLP: (mGycm):990 Technique: Multiple CT axial sections of the brain have been obtained, 5 mm slice thickness. Contrast has not been administered. 2-D sagittal, coronal reconstructions have been obtained Low dose protocols were performed. One or more of the following dose reduction techniques were used; automated exposure control, adjustment of the mA and/or KV according to patient size, use of iterative reconstruction technique. Findings: No significant ventricular enlargement. Posterior right scalp hematoma Intra-axial or extra-axial hemorrhage density is not seen. No mass effect or midline shift Basal cisterns are not remarkable. Fourth ventricle is midline. Cranial vault intact. Impression: Negative for acute hemorrhage, mass effect or midline shift
--- NOTE | 2025-02-23 23:23 | XR_ITS ---
Examination: CT cervical spine without contrast 2-D sagittal reconstructions 2-D coronal reconstructions 3-D reconstructions. Exam date and time:February 23, 2025 11:38 PM. INDICATIONS: Ground-level fall today with into the neck, neck pain CTDI:vol (mGy) 12.9 DLP: (mGycm) 260 Technique: Multiple 2 mm axial sections of the cervical spine have been obtained. The coronal and sagittal reconstructions have been obtained. 3-D reconstructions have been obtained. Low dose protocols were performed. One or more of the following dose reduction techniques were used; automated exposure control, adjustment of the mA and/or KV according to patient size, use of iterative reconstruction technique. Findings: Axial sections demonstrate intact base of the skull. C1 exhibit satisfactory relationship to the odontoid. No acute cervical vertebral body fracture seen. Alignment posterior spinous processes satisfactory. Advanced degenerative disc disease C5-C6, C6-C7 Impression: No acute cervical fracture.
--- NOTE | 2025-02-23 23:23 | XR_ITS ---
Examination: Ribs, right, with PA chest, 5 views Technique: Chest PA, RIBS AP, RPO, LPO, AP coned lower ribs 5 views Exam date and time: February 23, 2025 11:36 PM INDICATIONS: Patient fell today with into the right chest, right rib pain. FINDINGS: Parenchymal scarring left lower lobe unchanged compared with December 16, 2024 Normal heart size No pneumothorax Moderate osteopenia Fractures right 10th and 11th ribs in the midaxillary line which appear old, clinical correlation advised Impression: No pneumothorax. Old appearing fractures right 10th and 11th ribs in the midaxillary line, clinical correlation advised
--- NOTE | 2025-02-23 23:23 | EDRME_ITS ---
Rapid Medical Screening Exam FORMERLY [facility], [facility]–1983 Arrival date/time: 02/23/25 22:34 74F with history of CVA, HTN, and DM presents to ED with head, neck, and R rib pain after she fell off her porch. Chief Complaint: Fall Time Seen by Provider: 02/23/25 23:24 Vital signs: Vital Signs Temperature 97.9 F 02/23/25 22:55 Pulse Rate 73 02/23/25 22:55 Respiratory Rate 16 02/23/25 22:55 Blood Pressure 148/69 H 02/23/25 22:55 Pulse Oximetry (%) 95 02/23/25 22:55 Oxygen Delivery Method Room Air 02/23/25 22:55
[2025-02-24] MEDS: HYDROcodone/APAP 5/325 TABLET 1 TAB PO (00:01)
--- NOTE | 2025-02-24 01:27 | PD.EDFALL ---
ED Fall Injury RME/HPI General Chief Complaint: Fall Stated Complaint: FALL, HEAD INJURY, RIGHT SIDE HURTS Time Seen by Provider: 02/23/25 23:24 Arrival date/time: 02/23/25 22:34 RME / HPI RME / HPI Narrative: 02/23/25 22:34 74F with history of CVA, HTN, and DM presents to ED with head, neck, and R rib pain after she fell off her porch. Dr. Davis?s Main ED Evaluation: 74yo female s/p ground-level fall, striking her right posterior occipital scalp and feeling dazed for 10 minutes following impact. No LOC. Patient notes injuring her right hip and lateral chest. She typically ambulates with a walker. Related Data Home Medications ?Medication ?Instructions ?Recorded ?Confirmed lisinopril 20 mg tablet 40 mg PO DAILY 06/09/21 04/14/24 sertraline 50 mg tablet 50 mg PO HS 04/14/24 04/14/24 Previous Rx's ?Medication ?Instructions ?Recorded blood sugar diagnostic (Accu-Chek #100 ea 08/26/22 SmartView Test Strips) blood-glucose meter (OneTouch #1 ea 08/26/22 Solutions Starter kit) lancets 23 gauge (Acti-Jag #200 ea 08/26/22 Lancets) pen needle, diabetic 31 gauge x #100 ea 08/26/2207/03 (1st Tier Unifine Pentips) aluminum-mag hydroxide-simethicone 30 ml PO QID PRN acid reflux #355 09/30/22 400 mg-400 mg-40 mg/5 mL oral susp mL (Mag-Al Plus Extra Strength) meclizine 50 mg tablet 50 mg PO BID PRN dizziness #14 tabs 04/12/24 blood-glucose sensor (FreeStyle #1 ea 04/17/24 Chandan 3 Plus Sensor device) blood-glucose,administrator health care facility,cont #1 ea 04/17/24 (FreeStyle Chandan 3 [place]) insulin glargine 100 unit/mL (3 27 unit (0.27 mL) subcut HS 30 04/17/24 mL) subcutaneous pen days #15 mL metformin 500 mg tablet 500 mg PO BIDWMEAL #60 tabs 04/17/24 aspirin 81 mg tablet,delayed 81 mg PO QDAY #21 tabs 04/19/24 release clopidogrel 75 mg tablet (Plavix) 75 mg PO QDAY #30 tabs 04/19/24 acetaminophen 300 mg-codeine 15 mg 1 tab PO Q8H PRN pain #14 tabs 02/24/25 tablet Allergies Allergy/AdvReac Type Severity Reaction Status Date / Time Penicillins Allergy Severe Hives Verified 02/23/25 22:36 Review of Systems Review of Systems Systems Reviewed: All systems reviewed, normal except as documented Past Medical History Past Medical History NEUROLOGIC: Negative Neurological Disorders or Seizures CARDIAC: Positive Cardiac Disorders, Atherosclerotic Heart Disease, Hypercholesterolemia and Hypertension; Negative Myocardial Infarction, Cardiac Arrhythmia, Atrial Fibrillation, Angina, Heart Murmur, Coronary Artery Disease, Peripheral Vascular Disease, Aneurysm, Congestive Heart Failure, Congenital Heart Disease, Valvular Heart Disease, Rheumatic Fever, Cardiomyopathy, Edema, Pericarditis, Cellulitis, Deep Vein Thrombosis, Hypotension or Varicose Veins RESPIRATORY: Positive Asthma; Negative Chronic Obstructive Pulmonary Disease (COPD) GASTROINTESTINAL: Negative Gastrointestinal Disorders or Hepatitis GENITOURINARY: Negative Genitourinary Disorders or Renal Disease REPRODUCTIVE: Negative Pelvic Inflammatory Disease MUSCULOSKELETAL: Positive Fractures; Negative Muscular Dystrophy, Myasthenia Gravis, Marfan's Syndrome, Arthritis, Rheumatoid Arthritis, Osteoporosis, Degenerative Disk Disease, Gout, Scoliosis, Fibromyalgia, Degenerative Joint Disease, Osteomyelitis or Poliovirus ENT: Negative Cataracts, Glaucoma, Blind, Retinal Detachment, Macular Degeneration, Ear Infection or Deafness ENDOCRINE: Positive Diabetes Mellitus Type 2; Negative Endocrine Disorders, Diabetes Mellitus Type 1, Hypoglycemia, Roxy's Syndrome, Sweet Grass's Disease, Hyperthyroidism, Hypothyroidism, Parathyroid Disease, Pituitary Disease, Systemic Lupus Erythematosus, Syndrome of Inappropriate Antidiuretic Hormone (SIADH), Adrenal Disease or Graves' Disease HEMATOLOGIC: Negative Blood Disorders or Sickle Cell Disease PSYCHO/SOCIAL: Positive Depression and Anxiety; Negative Psychiatric Problems, Schizophrenia, Recreational Drug Use, Bipolar Disorder, Self-Mutilation, Attention Deficit Disorder, Attention Deficit Hyperactivity Disorder, Depression, Post Traumatic Stress Disorder or Eating Disorder OTHER HISTORY: Positive Hospitalization and Falls; Negative Autoimmune Disease, Autism, Blood Transfusions, Blood Transfusion Reaction, Anesthesia Reactions, Organ Transplant, Chemotherapy, Radiation Therapy, Hyperbaric Therapy, MRSA, VRSA, Vancomycin-Resistant Enterococci, Human Immunodeficiency Virus (HIV), Chicken Pox, Measles, Mumps, Rubella (Faroese Measles), Pertussis, Clostridium Difficile or Cancer Family History FAMILY HISTORY: Positive Family Cardiac Disorders; Negative Family Psychiatric Problems, Family Respiratory Disorders, Family Gastrointestinal Problems, Family Cancer, Family Surgery or Family Anesthesia Reaction Surgical History SURGICAL: Negative Cardiac Surgery, Pacemaker, Endocrine Surgery, Thyroidectomy, Ear Surgery, Tympanostomy Tube, Eye Surgery, Nose Surgery, Oral Surgery, Tonsillectomy, Adenoidectomy, Cochlear Implant, Corneal Transplant, Throat Surgery, Abdominal Surgery, Tracheostomy, Nephrectomy, Neurologic Surgery, Mastectomy or Organ Transplant Social History SMOKING STATUS: Never smoker SECOND HAND EXPOSURE: Yes ED Exam Narrative Physical exam: GENERAL APPEARANCE: alert and oriented x 4, well-developed, well-nourished, no acute distress VITALS: All vitals were reviewed and the pulse ox is 95% on room air, which is normal according to my interpretation. HEENT: Normocephalic, 4 x 3 cm tender right posterior occipital subcutaneous nodule without step-off; pupils equal, round, reactive to light; EOMI; mucous membranes pink, moist; oropharynx clear NECK: Supple, mild midline cervical spine tenderness LUNGS: CTABL; no wheezes, no rales, no rhonchi HEART: Regular rate, regular rhythm; normal S1, S2; no murmurs CHEST: mild right lateral chest wall tenderness at the mid axillary line without crepitus or step-off ABDOMEN: non distended; normal BS; soft, no tenderness, no guarding, no rebound; no masses, no organomegaly, no hernia BACK: no CVA tenderness EXTREMITIES: atraumatic; no edema NEUROLOGIC: awake; alert and oriented x4; GCS 15, fully recalls the event; cranial nerves II-XII grossly intact; no focal sensory or motor deficits, no cerebellar findings, gait not observed PSYCHIATRIC: appropriate mood and affect SKIN: warm, dry, normal color; no rashes Course Quality Measures none Orders Category Date Time Status CT cervical spine wo con Stat Exams 02/23/25 23:[address] head/brain wo con Stat Exams 02/23/25 23:23 Completed XR hip RT w pelvis 2-3V Stat Exams 02/24/25 01:46 Taken XR ribs RT min 3V w CXR1V Stat Exams 02/23/25 23:23 Completed HYDROcodone*/APAP 5/325 [[place] 5/325] Med 02/23/25 23:23 Discontinued 1 tab PO X1 ONE Vital Signs Vital signs: Vital Signs Temperature 97.9 F 02/23/25 22:55 Pulse Rate 73 02/23/25 22:55 Respiratory Rate 16 02/23/25 22:55 Blood Pressure 148/69 H 02/23/25 22:55 Pulse Oximetry (%) 95 02/23/25 22:55 Oxygen Delivery Method Room Air 02/23/25 22:55 Fall MDM Narrative MDM Narrative:: Scribe Attestation: 02/24/25 - Coco Vital am scribing for and in the presence of Dr. Davis. 74yo female s/p ground-level fall, striking her right posterior occipital scalp and feeling dazed for 10 minutes following impact. No LOC. Please see PE findings. Labs deferred. CT brain obtained and demonstrated right posterior scalp hematoma, otherwise, negative for acute intracranial event. CT cervical spin demonstrated advanced DJD of lower c-spine, but no fracture. Rib series demonstrated potential fractures of right 10-11th ribs, which appear to be old, but no evidence of pneumothorax. Right hip x-rays pending. PO narcotic analgesics with [id number]-bu-[id number] relief and remained hemodynamically and neurologically stable. Will review hip x-ray and if negative, will discharge home and treat consecutively. Dx: concussion, multiple contusions. Dispo: include short course narcotics and anti-inflammatory Patient data External records reviewed:: [facility] previous records (Per chart review, patient was seen here on 12/22/24 for breast mass.) Clinical information provided by:: patient Social determinants that could affect healthcare access:: none Patient has the following chronic illnesses:: CVA with mild right-sided residual deficits, HTN, HLD How is presenting disease/condition affected by chronic disease/condition?: uneffected by Evaluation data The following diagnostics were reviewed and interpreted by me:: radiology exam(s) (Right hip x-ray shows no pelvic fracture, no hip dislocation, no hip fracture, according to my interpretation.) Lab and/or radiology exams considered but not ordered:: none Interpretation Summary: [facility] Signed Patient: JENELLE GONZAELZ. Record#: [id number] Birthdate: 1950 Age/Sex: 74 / F Location: [facility] Attending Dr: Ordering Physician: Jhony Shah PA-C Date of Service: 02/23/25 Procedure(s): XR ribs RT min 3V w CXR1V Accession Number(s): [id number] cc: Forrest Rodriguez MD; Jhony Shah PA-C~ Examination: Ribs, right, with PA chest, 5 views Technique: Chest PA, RIBS AP, RPO, LPO, AP coned lower ribs 5 views Exam date and time: February 23, 2025 11:36 PM INDICATIONS: Patient fell today with into the right chest, right rib pain. FINDINGS: Parenchymal scarring left lower lobe unchanged compared with December 16, 2024 Normal heart size No pneumothorax Moderate osteopenia Fractures right 10th and 11th ribs in the midaxillary line which appear old, clinical correlation advised Impression: No pneumothorax. Old appearing fractures right 10th and 11th ribs in the midaxillary line, clinical correlation advised Dictated By: Forrest Rodriguez MD Signed By: <Electronically signed by Forrest Rodriguez MD in [place]> 02/24/25 0009 [facility] Signed Patient: JENELLE GONZALEZ. Record#: [id number] Birthdate: 1950 Age/Sex: 74 / F Location: [facility] Attending Dr: Ordering Physician: Jhony Shah PA-C Date of Service: 02/23/25 Procedure(s): CT head/brain wo con Accession Number(s): [id number] cc: Forrest Rodriguez MD; Jhony Shah PA-C~ Examination: CT brain head without contrast. 2-D sagittal coronal reconstructions Date and time of exam:February 23, 2025 11:39 PM Comparison December 22, 2024 Ground-level fall today with injury to the head, head pain CTDI: vol (mGy):50.1 DLP: (mGycm):990 Technique: Multiple CT axial sections of the brain have been obtained, 5 mm slice thickness. Contrast has not been administered. 2-D sagittal, coronal reconstructions have been obtained Low dose protocols were performed. One or more of the following dose reduction techniques were used; automated exposure control, adjustment of the mA and/or KV according to patient size, use of iterative reconstruction technique. Findings: No significant ventricular enlargement. Posterior right scalp hematoma Intra-axial or extra-axial hemorrhage density is not seen. No mass effect or midline shift Basal cisterns are not remarkable. Fourth ventricle is midline. Cranial vault intact. Impression: Negative for acute hemorrhage, mass effect or midline shift Dictated By: Forrest Rodriguez MD Signed By: <Electronically signed by Forrest Rodriguez MD in OV> 02/24/25 0002 [facility] Signed Patient: JENELLE GONZALEZ. Record#: [id number] Birthdate: 1950 Age/Sex: 74 / F Location: [facility] Attending Dr: Ordering Physician: Jhony Sahh PA-C Date of Service: 02/23/25 Procedure(s): CT cervical spine wo con Accession Number(s): [id number] cc: Forrest Rodriguez MD; Jhony Shah PA-C~ Examination: CT cervical spine without contrast 2-D sagittal reconstructions 2-D coronal reconstructions 3-D reconstructions. Exam date and time:February 23, 2025 11:38 PM. INDICATIONS: Ground-level fall today with into the neck, neck pain CTDI:vol (mGy) 12.9 DLP: (mGycm) 260 Technique: Multiple 2 mm axial sections of the cervical spine have been obtained. The coronal and sagittal reconstructions have been obtained. 3-D reconstructions have been obtained. Low dose protocols were performed. One or more of the following dose reduction techniques were used; automated exposure control, adjustment of the mA and/or KV according to patient size, use of iterative reconstruction technique. Findings: Axial sections demonstrate intact base of the skull. C1 exhibit satisfactory relationship to the odontoid. No acute cervical vertebral body fracture seen. Alignment posterior spinous processes satisfactory. Advanced degenerative disc disease C5-C6, C6-C7 Impression: No acute cervical fracture. Dictated By: Forrest Rodriguez MD Signed By: <Electronically signed by Forrest Rodriguez MD in OV> 02/24/25 0004 Medications / Prescriptions Medications or Prescriptions considered but not ordered:: none Medication administrations:: Medication Administration History Discontinued Medications Hydrocodone Bitart/Acetaminophen (Hydrocodone/Apap 5/325 Tablet) 1 tab PO X1 ONE Stop: 02/23/25 23:24 Last Admin: 02/24/25 00:01 Dose: 1 tab Documented By: OA see above Consultations Consultation(s) initiated? (list below): No Diagnosis Fall Differential Diagnosis: concussion without loss of consciousness and other (ICH, cervical fracture, rib fracture, hip fracture, contusion) Most likely diagnosis given after review of the tests above:: see clinical impression below Admission Indicated Admission indicated?: not indicated Admission Request Was there a request for admission?: No Disposition Plan Disposition Plan: Discharge Discharge Attestation Discharge Attestation: The patient and all family members were given an opportunity to ask questions and understood the discharge instructions. Discharge instructions specifically effects, indications for sooner follow up or return to the emergency department, and the expected course of current diagnosis. Patient condition: Stable Discharge Plan Plan Patient Disposition: HOME (Self Care) Discharge Disposition comment: Stable Prescriptions/Referrals Prescriptions/Med Rec: New acetaminophen-codeine 300-15 mg tablet 1 tab PO Q8H PRN (Reason: pain) Qty: 14 0RF No Action lisinopril 20 mg tablet 40 mg PO DAILY (DME) blood-glucose meter [Efizity Starter] Kit See Rx Instructions .Route Qty: 1 0RF Rx Instructions: As directed (DME) Accu-Chek SmartView Test Strip Strip See Rx Instructions .Route Qty: 100 2RF Rx Instructions: As directed (DME) Acti-Jag Lancets 23 gauge misc See Rx Instructions .Route Qty: 200 2RF Rx Instructions: As directed (DME) pen needle, diabetic [1st Tier Unifine Pentips] 31 gauge x 1/4 needle See Rx Instructions .Route Qty: 100 2RF Rx Instructions: As directed alum-mag hydroxide-simeth [Mag-Al Plus Extra Strength] 400-400-40 mg/5 mL Suspension 30 ml PO QID PRN (Reason: acid reflux) Qty: 355 1RF sertraline 50 mg tablet 50 mg PO HS Patient Comments: TAKE ONE TABLET BY MOUTH EVERY DAY insulin glargine 100 unit/mL (3 mL) insulin pen 27 unit subcut HS 30 Days Qty: 15 2RF metformin 500 mg tablet 500 mg PO BIDWMEAL Qty: 60 0RF (DME) FreeStyle Chandan 3 [place] Misc See Rx Instructions .ROUTE Qty: 1 0RF Rx Instructions: As directed (DME) FreeStyle Chandan 3 Plus Sensor Device See Rx Instructions .ROUTE Qty: 1 0RF Rx Instructions: As directed aspirin 81 mg tablet,delayed release (DR/EC) 81 mg PO QDAY Qty: 21 0RF clopidogrel [Plavix] 75 mg tablet 75 mg PO QDAY Qty: 30 0RF meclizine 50 mg tablet 50 mg PO BID PRN (Reason: dizziness) Qty: 14 0RF Referrals: Jovanny Jackson MD [Primary Care Provider] - In 1 week Problem List Clinical Impression: Concussion, Multiple contusions Clinical Impression: (Ruled Out): Non-ST elevation AR (NSTEMI) Patient/Caregiver Discharge Instructions Discharge Activity: activity as tolerated Education Materials: ED Concussion, ED Head Injury (Adult) Additional Instructions: Maintain head of bed elevation. Ice compresses to the posterior occiput. Medication as directed. Return for escalating headaches persistent nausea and vomiting or worsening illness Print Language: Guinean Stand Alone Forms: [facility]lin Award Info., Patient Portal Info Letter
[2025-02-24 01:45] VITALS: BP 112/78; PULSE 74; RESP 17; TEMP 36.7; O2SAT 99
--- NOTE | 2025-02-24 01:46 | XR_ITS ---
Examination:Right hip AP, lateral, AP pelvis 3 views Technique: Hip AP lateral, AP pelvis, 3 views Exam date and time:February 16, 2025, 0156 hours INDICATIONS: Patient fell today with injury to the right hip, right hip pain. FINDINGS: No acute right hip fracture No hip dislocation. Left hip intact. Old appearing fracture left inferior pubic ramus 15 mm calcific density lateral to L3-L4, clinical correlation advised IMPRESSION: No acute hip or pelvic fracture 15 mm calcific density lateral to L3-L4, consider renal sonography follow-up..
== END 2025-02-24 02:31 | disposition home or self-care (01) ==
PROVIDERS: Emergency Provider Emergency Medicine; PCP Family Medicine
DX: S06.0X0A Concussion without loss of consciousness, initial encounter (principal); S00.93XA Contusion of unspecified part of head, initial encounter; S10.93XA Contusion of unspecified part of neck, initial encounter; S20.211A Contusion of right front wall of thorax, initial encounter; S70.01XA Contusion of right hip, initial encounter; W17.89XA Other fall from one level to another, initial encounter
CPT/HCPCS: 70450; 71101; 72125; 73502; 99284; A9270

== ENCOUNTER 2025-03-19 00:45 | Emergency (ER) | payer OTHER, SELFPAY ==
[2025-03-19 00:47] VITALS: BMI 25.8
--- NOTE | 2025-03-19 00:47 | EDNOTE_ITS ---
ED Chest Pain RME/HPI General Chief Complaint: Chest Pain Stated Complaint: CHEST PAIN,SOB Time Seen by Provider: 03/19/25 01:03 Arrival date/time: 03/19/25 00:45 RME / HPI RME / HPI narrative: See MDM for Dr. Conde's HPI documentation. Related Data Home Medications ?Medication ?Instructions ?Recorded ?Confirmed lisinopril 20 mg tablet 40 mg PO DAILY 06/09/2103/30 sertraline 50 mg tablet 50 mg PO HS 04/14/24 4 Previous Rx's ?Medication ?Instructions ?Recorded blood sugar diagnostic (Accu-Chek #100 ea 08/26/22 SmartView Test Strips) blood-glucose meter (OneTouch #1 ea 08/26/22 Solutions Starter kit) lancets 23 gauge (Acti-Jag #200 ea 08/26/22 Lancets) pen needle, diabetic 31 gauge x #100 ea 08/26/2207/03 (1st Tier Unifine Pentips) aluminum-mag hydroxide-simethicone 30 ml PO QID PRN ac id reflux #355 09/30/22 400 mg-400 mg-40 mg/5 mL oral susp mL (Mag-Al Plus Extra Strength) meclizine 50 mg tablet 50 mg PO BID PRN dizziness # 14 tabs 04/12/24 blood-glucose sensor (FreeStyle #1 ea 04/17/24 Chandan 3 Plus Sensor device) blood-glucose,fish receiver,cont #1 ea 04/17/24 (FreeStyle Chand[place] [address] [place]) insulin glargine 100 unit/mL (3 27 unit (0.27 mL) subc ut HS 30 04/17/24 mL) subcutaneous pen days #15 mL metformin 500 mg tablet 500 mg PO BIDWMEAL #60 tabs 04/17/24 aspirin 81 mg tablet,delayed 81 mg PO QDAY #21 tabs release clopidogrel 75 mg tablet (Plavix) 75 mg PO QDAY #30 ta bs 04/19/24 acetaminophen 300 mg-codeine 15 mg 1 tab PO Q8H PRN pa in #14 tabs 02/24/25 tablet alprazolam 0.5 mg tablet (Xanax) 0.5 mg PO BID PRN anx iety #20 tabs 03/19/25 cefdinir 300 mg capsule 300 mg PO BID #14 caps 03/19 Allergies Allergy/AdvReac Type Severity Reaction Status Date / Time Penicillins Allergy Severe Hives Verified 03/19/25 00:46 Review of Systems Review of Systems Systems Reviewed: All systems reviewed, normal except as documented Past Medical History Past Medical History NEUROLOGIC: Negative Neurological Disorders or Seizures CARDIAC: Positive Cardiac Disorders, Atherosclerotic Heart Disease, Hypercholesterolemia and Hypertension; Negative Myocardial Infarction, Cardiac Arrhythmia, Atrial Fibrillation, Angina, Heart Murmur, Coronary Artery Disease, Peripheral Vascular Disease, Aneurysm, Congestive Heart Failure, Congenital Heart Disease, Valvular Heart Disease, Rheumatic Fever, Cardiomyopathy, Edema, Pericarditis, Cellulitis, Deep Vein Thrombosis, Hypotension or Varicose Veins RESPIRATORY: Positive Asthma; Negative Chronic Obstructive Pulmonary Disease (COPD) GASTROINTESTINAL: Negative Gastrointestinal Disorders or Hepatitis GENITOURINARY: Negative Genitourinary Disorders or Renal Disease REPRODUCTIVE: Negative Pelvic Inflammatory Disease MUSCULOSKELETAL: Positive Fractures; Negative Muscular Dystrophy, Myasthenia Gravis, Marfan's Syndrome, Arthritis, Rheumatoid Arthritis, Osteoporosis, Degenerative Disk Disease, Gout, Scoliosis, Fibromyalgia, Degenerative Joint Disease, Osteomyelitis or Poliovirus ENT: Negative Cataracts, Glaucoma, Blind, Retinal Detachment, Macular Degeneration, Ear Infection or Deafness ENDOCRINE: Positive Diabetes Mellitus Type 2; Negative Endocrine Disorders, Diabetes Mellitus Type 1, Hypoglycemia, Roxy's Syndrome, Melo's Disease, Hyperthyroidism, Hypothyroidism, Parathyroid Disease, Pituitary Disease, Systemic Lupus Erythematosus, Syndrome of Inappropriate Antidiuretic Hormone (SIADH), Adrenal Disease or Graves' Disease HEMATOLOGIC: Negative Blood Disorders or Sickle Cell Disease PSYCHO/SOCIAL: Positive Depression and Anxiety; Negative Psychiatric Problems, Schizophrenia, Recreational Drug Use, Bipolar Disorder, Self-Mutilation, Attention Deficit Disorder, Attention Deficit Hyperactivity Disorder, Depression, Post Traumatic Stress Disorder or Eating Disorder OTHER HISTORY: Positive Hospitalization and Falls; Negative Autoimmune Disease, Autism, Blood Transfusions, Blood Transfusion Reaction, Anesthesia Reactions, Organ Transplant, Chemotherapy, Radiation Therapy, Hyperbaric Therapy, MRSA, VRSA, Vancomycin-Resistant Enterococci, Human Immunodeficiency Virus (HIV), Chicken Pox, Measles, Mumps, Rubella (Malay Measles), Pertussis, Clostridium Difficile or Cancer Family History FAMILY HISTORY: Positive Family Cardiac Disorders; Negative Family Psychiatric Problems, Family Respiratory Disorders, Family Gastrointestinal Problems, Family Cancer, Family Surgery or Family Anesthesia Reaction Surgical History SURGICAL: Negative Cardiac Surgery, Pacemaker, Endocrine Surgery, Thyroidectomy, Ear Surgery, Tympanostomy Tube, Eye Surgery, Nose Surgery, Oral Surgery, Tonsillectomy, Adenoidectomy, Cochlear Implant, Corneal Transplant, Throat Surgery, Abdominal Surgery, Tracheostomy, Nephrectomy, Neurologic Surgery, Mastectomy or Organ Transplant Social History SMOKING STATUS: Never smoker SECOND HAND EXPOSURE: Yes ED Exam Narrative Physical exam: See [facility] for Dr. Conde's physical exam documentation. Course Quality Measures none Orders Category Date Time Status Bedside COVID-19 Antigen Test NOW Care 03/19/25 01:04 Completed Bedside Influenza A&B Antigen Test NOW Care 03/19/25 01:04 Completed Director Security Risk Management Q4H START 00 Care 03/19/25 02:53 Completed EKG (ED ONLY) *Do not use* NOW Care 03/19/25 00:51 Completed Saline [Insert IV] NOW Care 03/19/25 01:04 Completed EKG (ED Only) Stat Exams 03/19/25 00:50 Draft BMP [Basic Metabolic Panel] Stat Lab 03/19/25 01:32 Completed BNP [B-Type Natriuretic Peptide] Stat Lab 03/19/25 01:32 Completed CBC Stat Lab 03/19/25 01:32 Completed D-Dimer Stat Lab 03/19/25 01:32 Completed Magnesium Stat Lab 03/19/25 01:32 Completed TSH [Thyroid Stimulating Hormone] Stat Lab 03/19/25 01:32 Completed Troponin I Stat Lab 03/19/25 01:32 Completed Troponin I Stat Lab 03/19/25 02:47 Completed UA, C/S IF [Urinalysis, C/S if Indicated] Stat Lab 03/19/25 01:30 Completed Urine Culture Stat Lab 03/19/25 01:30 Received Diazepam Inj [Valium Inj] Med 03/19/25 01:04 Discontinued 2.5 mg IVP X1 ONE Sodium Chloride 0.9% 1000 ml [Ns] 1,000 ml Med 03/19/25 01:59 Discontinued IV 999 mls/hr cefTRIAXone/D5w 1gm IV premix [Rocephin/D5w 1gm IV Med 03/19/25 01:59 Disc ontinued premix] 1 gm in 50 ml IV X1 Vital Signs Vital signs: Vital Signs Temperature 98.4 F 03/19/25 00:52 Pulse Rate 69 03/19/25 00:52 Respiratory Rate 19 03/19/25 00:52 Blood Pressure 156/76 H 03/19/25 00:52 Pulse Oximetry (%) 96 03/19/25 00:52 Oxygen Delivery Method Room Air 03/19/25 00:52 Chest Pain MDM Narrative MDM Narrative:: This section includes all my notes and documentations, including HPI, PE, and ED course. Meir Conde MD HPI: 74yo female here with chest tightness for the last couple hours. Patient rates her pain an 8 out of 10. Her pain worsens when she breathes. Patient feels anxious. No other complaints reported. ROS: All negative except as documented in HPI. Physical Exam: General: Alert and oriented. No acute distress when remaining still. Eyes: Conjunctivae and lids clear. ENT: No nasal congestion. Neck: Supple. Heart: RRR. Lungs: No respiratory distress. Good air movement. No rhonchi, wheezing, ra les. Abdomen: Soft and nontender. Normal bowel sounds. No distension. No rebound or guarding. Back: No CVA tenderness. Skin: Warm and dry. Neuro: Alert and oriented X 3. I reviewed all diagnostic test results. My interpretation of the EKG is sinus rhythm with nonspecific ST-T changes. Blood tests remarkable for mild troponin elevation (stable from past chronic elevations). UA remarkable for positive leukocyte esterase, 4 RBCs, 63 WBCs, and bacteria. COVID/Influenza negative. At this point, diagnoses include: Chest pain due to anxiety UTI Treatment here included: IV fluid Valium 2.5 mg IV Rocephin 1 g IV Significant improvement noted. Recommended outpatient management. Based on my best medical judgment, made decision no further evaluation or treatment indicated at this time. Patient understands and agrees to the discharge instructions customized and printed, see below. Discharge instructions from Dr. Conde: 1. After evaluation, you have UTI (see attached handout). 2. Take cefdinir to kill the germs causing the infection. 3. For good hydration, increase oral fluid and maintain clear urine. If dark or yellow, increase oral fluid. Zofran for nausea/vomiting. 4. Your chest pain is most likely due to anxiety. Take Xanax as needed. There is no heart attack. 5. If you want to make sure there is no serious underlying heart condition, see a private doctor on 03/21/2025 for recheck and further care. To make sure there is no serious underlying heart condition, ask to help you get more tests for your heart that cannot be done here in the ER. Such as Holter Monitor (cardiac monitoring at home from a day to even a month), heart stress test (on treadmill or with medication), echocardiogram (imaging of your heart structures), heart catherization (checking for blockages in your heart arteries), and a referral to see a Television Program Director. Ask to review all test results and official radiology reports, to make sure you receive all necessary follow-ups and monitoring, including final urine culture results from today. 6. Seek immediate medical care with worsening, fever, or with any concerns. Meir Conde MD Patient data External records reviewed:: [facility] previous records (Per chart review, patient was seen here on 02/24/25 for concussion.) Clinical information provided by:: patient Social determinants that could affect healthcare access:: none Patient has the following chronic illnesses:: CVA with mild right-sided residual deficits, HTN, HLD How is presenting disease/condition affected by chronic disease/condition?: uneffected by Evaluation data The following diagnostics were reviewed and interpreted by me:: lab results, radiology exam(s) and EKG tracing(s) (My interpretation of the EKG is: Sinus rhythm (65 bpm) with nonspecific ST-T changes. Meir Conde MD) Lab and/or radiology exams considered but not ordered:: none Interpretation Summary: I reviewed all diagnostic test results. My interpretation of the EKG is sinus rhythm with nonspecific ST-T changes. Blood tests remarkable for mild troponin elevation (stable from past chronic elevations). UA remarkable for positive leukocyte esterase, 4 RBCs, 63 WBCs, and bacteria. COVID/Influenza negative. Medications / Prescriptions Medications or Prescriptions considered but not ordered:: none Medication administrations:: Medication Administration History Discontinued Medications Diazepam (Diazepam Inj 5 Mg/Ml Vial 2 Ml) 2.5 mg IVP X1 ONE Stop: 03/19/25 01:05 Last Admin: 03/19/25 01:36 Dose: 2.5 mg Documented By: BD Ceftriaxone Sodium/Dextrose (Rocephin/D5w 1gm Iv Premix) 1 gm in 50 mls @ 100 mls/hr IV X1 ONE Stop: 03/19/25 02:28 Last Infusion: 03/19/25 02:44 Dose: Infused Documented By: Admin: 03/19/25 02:10 Dose: 100 mls/hr Documented By: ERICA Sodium Chloride (Ns) 1,000 mls @ 999 mls/hr IV .Q1H1M ONE Stop: 03/19/25 02:59 Last Infusion: 03/19/25 02:44 Dose: Infused Documented By: Admin: 03/19/25 02:10 Dose: 999 mls/hr Documented By: ERICA IV fluid, Valium, Rocephin Consultations Consultation(s) initiated? (list below): No Diagnosis Chest Pain Differential Diagnosis: atypical chest pain, st elevation myocardial infarction, costochondritis and other (NSTEMI, musculoskeletal pain, anxiety) Most likely diagnosis given after review of the tests above:: Chest pain due to anxiety, UTI Admission Indicated Admission indicated?: not indicated Explain why admission is indicated or not indicated:: With significant improvement and no condition needing emergent intervention, there was no indication for admission. Admission Request Was there a request for admission?: No Disposition Plan Disposition Plan: Discharge Discharge Attestation Discharge Attestation: The patient and all family members were given an opportunity to ask questions and understood the discharge instructions. Discharge instructions specifically effects, indications for sooner follow up or return to the emergency department, and the expected course of current diagnosis. Patient condition: Stable Discharge Plan Plan Patient Disposition: HOME (Self Care) Prescriptions/Referrals Prescriptions/Med Rec: New alprazolam [Xanax] 0.5 mg tablet 0.5 mg PO BID PRN (Reason: anxiety) Qty: 20 0RF cefdinir 300 mg capsule 300 mg PO BID Qty: 14 0RF No Action lisinopril 20 mg tablet 40 mg PO DAILY (DME) blood-glucose meter [Biomonde Starter] Kit See Rx Instructions .Route Qty: 1 0RF Rx Instructions: As directed (DME) Accu-Chek SmartView Test Strip Strip See Rx Instructions .Route Qty: 100 2RF Rx Instructions: As directed (DME) Acti-Jag Lancets 23 gauge misc See Rx Instructions .Route Qty: 200 2RF Rx Instructions: As directed (DME) pen needle, diabetic [1st Tier Unifine Pentips] 31 gauge x 1/4 needle See Rx Instructions .Route Qty: 100 2RF Rx Instructions: As directed alum-mag hydroxide-simeth [Mag-Al Plus Extra Strength] 400-400-40 mg/5 mL Suspension 30 ml PO QID PRN (Reason: acid reflux) Qty: 355 1RF sertraline 50 mg tablet 50 mg PO HS Patient Comments: TAKE ONE TABLET BY MOUTH EVERY DAY insulin glargine 100 unit/mL (3 mL) insulin pen 27 unit subcut HS 30 Days Qty: 15 2RF metformin 500 mg tablet 500 mg PO BIDWMEAL Qty: 60 0RF (DME) FreeStyle Chandan [address] [place] Misc See Rx Instructions .ROUTE Qty: 1 0RF Rx Instructions: As directed (DME) FreeStyle Chandan 3 Plus Sensor Device See Rx Instructions .ROUTE Qty: 1 0RF Rx Instructions: As directed aspirin 81 mg tablet,delayed release (DR/EC) 81 mg PO QDAY Qty: 21 0RF clopidogrel [Plavix] 75 mg tablet 75 mg PO QDAY Qty: 30 0RF acetaminophen-codeine 300-15 mg tablet 1 tab PO Q8H PRN (Reason: pain) Qty: 14 0RF meclizine 50 mg tablet 50 mg PO BID PRN (Reason: dizziness) Qty: 14 0RF Referrals: No Primary/Family,Physician [Primary Care Provider] - In 1 week Problem List Clinical Impression: Chest pain, UTI (urinary tract infection) Patient/Caregiver Discharge Instructions Discharge Activity: activity as tolerated Education Materials: ED Chest Pain, Uncertain Cause, ED CYSTITIS Female Adult Additional Instructions: Discharge instructions from Dr. Conde: 1. After evaluation, you have UTI (see attached handout). 2. Take cefdinir to kill the germs causing the infection. 3. For good hydration, increase oral fluid and maintain clear urine. If dark or yellow, increase oral fluid. Zofran for nausea/vomiting. 4. Your chest pain is most likely due to anxiety. Take Xanax as needed. There is no heart attack. 5. If you want to make sure there is no serious underlying heart condition, see a private doctor on 03/21/2025 for recheck and further care. To make sure there is no serious underlying heart condition, ask to help you get more tests for your heart that cannot be done here in the ER. Such as Holter Monitor (cardiac monitoring at home from a day to even a month), heart stress test (on treadmill or with medication), echocardiogram (imaging of your heart structures), heart catherization (checking for blockages in your heart arteries), and a referral to see a Television Program Director. Ask to review all test results and official radiology reports, to make sure you receive all necessary follow-ups and monitoring, including final urine culture results from today. 6. Seek immediate medical care with worsening, fever, or with any concerns. Print Language: Citizen Of [place] Stand Alone Forms: Kaylin Award Info., Patient Portal Info Letter
--- NOTE | 2025-03-19 00:50 | EKG_ITS ---
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
[2025-03-19 00:52] VITALS: BP 156/76; PULSE 69; RESP 19; TEMP 36.9; O2SAT 96
--- NOTE | 2025-03-19 01:32 | PC.NURSE ---
canceled in and out cath pt was able to urinate on own
[2025-03-19] MEDS: DIAZEPAM INJ 5 MG/ML VIAL 2 ML 2.5 MG IVP (01:36)
[2025-03-19 01:40] LABS: Collection Type, Urine Clean Catch
[2025-03-19 01:50] LABS: Basophils # (Auto) 0.1 Thou/mm3 (0.0-0.2); Basophils % (Auto) 1 % (0-2.5); Eosinophils # (Auto) 0.3 Thou/mm3 (0.0-0.5); Eosinophils % (Auto) 2 % (0-10); Hematocrit 40.7 % (36.0-46.0); Hemoglobin 13.2 g/dL (12.0-16.0); Immature Granulocytes Auto 0.05 Thou/mm3 (0.00-0.00); Lymphocytes # (Auto) 2.6 Thou/mm3 (1.0-4.8); Lymphocytes % (Auto) 24 % (10-50); Mean Corpuscular HGB Conc 32.4 g/dl (31.0-37.0); Mean Corpuscular Hemoglobin 29.8 pg (25.0-35.0); Mean Corpuscular Volume 92 fL (80-100); Monocytes # (Auto) 1.0 Thou/mm3 (0.0-0.8); Monocytes % (Auto) 9 % (0-12); Neutrophils # (Auto) 6.8 Thou/mm3 (1.8-7.7); Neutrophils % (Auto) 64 % (37-80); Nucleated Red Blood Cell # 0.00 Thou/mm3 (0.00-0.00); Nucleated Red Blood Cell % 0 /100 WBC (0); Platelet Count 213 Thou/mm3 (140-440); RDW Standard Deviation 44.4 fL (36.4-46.3); Red Blood Count 4.43 Miln/mm3 (4.00-5.20); White Blood Count 10.7 Thou/mm3 (3.6-11.0)
[2025-03-19 01:54] LABS: Bacteria,Urine Rare; Bilirubin,Urine Negative (Negative); Blood,Urine Trace (Negative); Clarity,Urine Turbid (Clear/Hazy); Color,Urine Yellow (Lt Yel-Yel); Glucose, Urine Negative (Negative); Hyaline Casts,Urine < 1 /hpf (0-1); Ketones,Urine Negative (Negative); Leukocyte Esterase,Urine Positive (Negative); Nitrite,Urine Negative (Negative); PH,Urine 5.0 (5.0-7.0); Protein,Urine Negative (Neg - Trace); RBC,Urine 4 /hpf (0-3); Specific Gravity,Urine 1.027 (1.001-1.035); Squamous Epithelial Cell,Urine 2 /hpf (0-5); Urobilinogen,Urine Negative mg/dL (0.0-1.0); WBC,Urine 63 /hpf (0-5)
[2025-03-19 01:55] LABS: Culture Indicated,Urine Yes
[2025-03-19 02:00] VITALS: BP 135/74; PULSE 85; RESP 16; TEMP 36.9; O2SAT 100
[2025-03-19 02:06] LABS: D-Dimer 373 ng/mL (<600)
[2025-03-19] MEDS: SODIUM CHLORIDE 0.9% 1000 ML 1,000 ML 999 ML IV (02:10)
[2025-03-19] MEDS: cefTRIAXone/D5w 1gm IV premix 1 GM/50 ML BAG IV (02:10)
[2025-03-19 02:13] LABS: B-Type Natriuretic Peptide 72 pg/mL (0-100)
[2025-03-19 02:34] LABS: Anion Gap 7 (7-16); BUN/Creatinine Ratio 23 Ratio (12-20); Blood Urea Nitrogen 18 mg/dL (9-23); Calcium 10.4 mg/dL (8.3-10.6); Carbon Dioxide 30.3 mMol/L (20.0-31.0); Chloride 107 mMol/L (98-107); Creatinine (Component) 0.8 mg/dL (0.6-1.3); Estimated Creatinine Clearance 63.9 mL/min (>60); Glucose 112 mg/dL (74-106); Magnesium 1.9 mg/dL (1.6-2.6); Osmolality,Calculated 289 (275-295); Potassium 4.0 mMol/L (3.4-5.1); Sodium 144 mMol/L (136-145); Thyroid Stimulating Hormone 2.91 uIU/mL (0.55-4.78); eGFR > 60 See Note
[2025-03-19 02:36] LABS: Troponin I 0.101 ng/mL (0.0-0.045)
[2025-03-19 02:53] VITALS: PULSE 83
[2025-03-19 03:00] VITALS: BP 174/87; PULSE 72; RESP 16; TEMP 37; O2SAT 98
[2025-03-19 03:19] LABS: Troponin I 0.098 ng/mL (0.0-0.045)
== END 2025-03-19 03:49 | disposition home or self-care (01) ==
PROVIDERS: Emergency Provider Emergency Medicine
DX: R07.89 Other chest pain (principal); N39.0 Urinary tract infection, site not specified; R79.89 Other specified abnormal findings of blood chemistry; I25.10 Atherosclerotic heart disease of native coronary artery without angina pectoris; E78.00 Pure hypercholesterolemia, unspecified; I10 Essential (primary) hypertension; J45.909 Unspecified asthma, uncomplicated; I69.30 Unspecified sequelae of cerebral infarction; Z79.899 Other long term (current) drug therapy; Z88.0 Allergy status to penicillin
CPT/HCPCS: 36415; 80048; 81001; 83735; 83880; 84443; 84484; 85025; 85379; 87077; 87086; 87186; 87400; 87811; 93005; 96365; 96375; 99284; J0696; J3360; J7030

== ENCOUNTER 2025-03-19 23:37 | Emergency (ER) | payer OTHER, SELFPAY ==
--- NOTE | 2025-03-19 23:47 | EDNOTE_ITS ---
ED Back Injury Pain RME/HPI General Chief Complaint: Back Pain/Injury Stated Complaint: LOWER BACK PAIN Time Seen by Provider: 03/20/25 00:16 Arrival date/time: 03/19/25 23:37 RME / HPI RME / HPI Narrative: See [facility] for Dr. Conde's HPI Documentation. Related Data Home Medications ?Medication ?Instructions ?Recorded ?Confirmed lisinopril 20 mg tablet 40 mg PO DAILY 06/09/2103/30 sertraline 50 mg tablet 50 mg PO HS 04/14/24 4 Previous Rx's ?Medication ?Instructions ?Recorded blood sugar diagnostic (Accu-Chek #100 ea 08/26/22 SmartView Test Strips) blood-glucose meter (OneTouch #1 ea 08/26/22 Solutions Starter kit) lancets 23 gauge (Acti-Jag #200 ea 08/26/22 Lancets) pen needle, diabetic 31 gauge x #100 ea 08/26/2207/03 (1st Tier Unifine Pentips) aluminum-mag hydroxide-simethicone 30 ml PO QID PRN ac id reflux #355 09/30/22 400 mg-400 mg-40 mg/5 mL oral susp mL (Mag-Al Plus Extra Strength) meclizine 50 mg tablet 50 mg PO BID PRN dizziness # 14 tabs 04/12/24 blood-glucose sensor (FreeStyle #1 ea 04/17/24 Chandan 3 Plus Sensor device) blood-glucose,gasket supervisor,cont #1 ea 04/17/24 (FreeStyle Chandan 3 Nicholson) insulin glargine 100 unit/mL (3 27 unit (0.27 mL) subc ut HS 30 04/17/24 mL) subcutaneous pen days #15 mL metformin 500 mg tablet 500 mg PO BIDWMEAL #60 tabs 04/17/24 aspirin 81 mg tablet,delayed 81 mg PO QDAY #21 tabs release clopidogrel 75 mg tablet (Plavix) 75 mg PO QDAY #30 ta bs 04/19/24 acetaminophen 300 mg-codeine 30 mg 2 tab PO Q8H PRN pa in #20 tabs 03/20/25 tablet cefdinir 300 mg capsule 300 mg PO BID #14 caps 03/20 Allergies Allergy/AdvReac Type Severity Reaction Status Date / Time Penicillins Allergy Severe Hives Verified 03/19/25 00:46 Review of Systems Review of Systems Systems Reviewed: All systems reviewed, normal except as documented Past Medical History Past Medical History CARDIAC: Positive Atherosclerotic Heart Disease, Hypercholesterolemia and Hypertension RESPIRATORY: Positive Asthma MUSCULOSKELETAL: Positive Fractures ENDOCRINE: Positive Diabetes Mellitus Type 2 PSYCHO/SOCIAL: Positive Depression and Anxiety OTHER HISTORY: Positive Hospitalization and Falls Family History FAMILY HISTORY: Positive Family Cardiac Disorders Social History SECOND HAND EXPOSURE: Yes ED Exam Narrative Physical exam: See [facility] for Dr. Conde's Physical Exam Documentation. Course Quality Measures none Orders Category Date Time Status CT chest abdomen pelvis wo Stat Exams 03/19/25 23:53 Completed Morphine* Inj Med 03/19/25 23:53 Discontinued 8 mg IM X1 ONE cefTRIAXone [Rocephin] 1,000 mg Med 03/20/25 01:59 Discontinued Lidocaine 1% 20 ml [Xylocaine 1% 20 ML] 2.1 ml IM X1 Vital Signs Vital signs: Vital Signs Temperature 98.5 F 03/19/25 23:55 Pulse Rate 76 03/19/25 23:55 Respiratory Rate 18 03/19/25 23:55 Blood Pressure 132/80 H 03/19/25 23:55 Pulse Oximetry (%) 98 03/19/25 23:55 Oxygen Delivery Method Room Air 03/19/25 23:55 Back Pain / Injury [facility] Narrative [facility] Narrative:: This section includes all my notes and documentations, including HPI, PE, and ED course. Meir Conde MD HPI: 74 y/o female with Hx of HTN and Type II DM presents with right sided abdominal pain. I took care of her here yesterday. She was diagnosed with chest pain due to anxiety and UTI. She did not fill her medications. No other complaints. ROS: All negative except as documented in HPI. Physical Exam: General: Alert and oriented. No acute distress when remaining still. Eyes: Conjunctivae and lids clear. ENT: No nasal congestion. Neck: Supple. Heart: RRR. Lungs: No respiratory distress. Good air movement. No rhonchi, wheezing, rales. Abdomen: Soft and nontender. Normal bowel sounds. No distension. No rebound or guarding. Back: No CVA tenderness. Skin: Warm and dry. Neuro: Alert and oriented X 3. I reviewed all diagnostic test results: My review of the Chest/Abdomen/Pelvis CT report is stable left breast mass. At this point, diagnoses include: UTI Left breast mass Treatment here included: Morphine 8 mg IM Rocephin 1 G IM She felt much better. Recommended outpatient care. Based on my best medical judgment, made decision no further evaluation or treatment indicated at this time. Patient understands and agrees to the discharge instructions customized and printed, see below. Discharge instructions from Dr. Conde: 1. After evaluation yesterday, you have severe UTI (see attached handout). Your right sided pain is due to the infection. Tylenol with codeine for severe pain. 2. Take cefdinir to kill the germs causing the infection. 3. For good hydration, increase oral fluid and maintain clear urine. If dark or yellow, increase oral fluid. 4. See a private doctor on 03/21/2025 for recheck and further care. Ask to review all test results and official radiology reports from your two visits here, to make sure you receive all necessary follow-ups and monitoring. Including final urine culture results from yesterday and today's CT showing left breast mass. Ask for help with more investigation of your left breast mass, with more imaging studies and referrals to see specialists. 5. Seek immediate medical care with worsening, fever, or with any concerns. Meir Conde MD Patient data External records reviewed:: [facility] previous records (Reviewed prior records from Today. Patient was seen for Chest pain.) Clinical information provided by:: patient Social determinants that could affect healthcare access:: none Patient has the following chronic illnesses:: Atherosclerotic Heart Disease, Hypercholesterolemia, Hypertension, Asthma, Diabetes Mellitus Type 2, Depression and Anxiety How is presenting disease/condition affected by chronic disease/condition?: exacerbated by Evaluation data The following diagnostics were reviewed and interpreted by me:: radiology exam(s) Lab and/or radiology exams considered but not ordered:: None Interpretation Summary: I reviewed all diagnostic test results: My review of the Chest/Abdomen/Pelvis CT report is stable left breast mass. Medications / Prescriptions Medications or Prescriptions considered but not ordered:: None Medication administrations:: Medication Administration History Discontinued Medications Ceftriaxone Sodium 1,000 mg/ (Lidocaine HCl 2.1 ml) 0 mg IM X1 ONE Stop: 03/20/25 02:00 Last Admin: 03/20/25 02:24 Dose: 1,000 mg Documented By: CVL Morphine Sulfate (Morphine Sulf Inj 4 Mg/Ml Vial) 8 mg IM X1 ONE Stop: 03/19/25 23:54 Last Admin: 03/20/25 00:40 Dose: 8 mg Documented By: EE Morphine 8 mg IM Rocephin 1 G IM Consultations Consultation(s) initiated? (list below): No Diagnosis Differential diagnosis back pain/injury: lumbar radiculopathy, sciatica, strain of lumbar region, renal colic, thoracic back pain, AAA and discitis Most likely diagnosis given after review of the tests above:: UTI Left breast mass Admission Indicated Admission indicated?: not indicated Explain why admission is indicated or not indicated:: With significant improvement and no condition needing emergent intervention, there was no indication for admission. Admission Request Was there a request for admission?: No Disposition Plan Disposition Plan: Discharge Discharge Attestation Discharge Attestation: The patient and all family members were given an opportunity to ask questions and understood the discharge instructions. Discharge instructions specifically effects, indications for sooner follow up or return to the emergency department, and the expected course of current diagnosis. Patient condition: Stable Discharge Plan Plan Patient Disposition: HOME (Self Care) Prescriptions/Referrals Prescriptions/Med Rec: New acetaminophen-codeine 300-30 mg tablet 2 tab PO Q8H MDD 6 PRN (Reason: pain) Qty: 20 0RF cefdinir 300 mg capsule 300 mg PO BID Qty: 14 0RF Discontinued acetaminophen-codeine 300-15 mg tablet 1 tab PO Q8H PRN (Reason: pain) Qty: 14 0RF alprazolam [Xanax] 0.5 mg tablet 0.5 mg PO BID PRN (Reason: anxiety) Qty: 20 0RF cefdinir 300 mg capsule 300 mg PO BID Qty: 14 0RF No Action lisinopril 20 mg tablet 40 mg PO DAILY (DME) blood-glucose meter [Social Tools Starter] Kit See Rx Instructions .Route Qty: 1 0RF Rx Instructions: As directed (DME) Accu-Chek SmartView Test Strip Strip See Rx Instructions .Route Qty: 100 2RF Rx Instructions: As directed (DME) Acti-Jag Lancets 23 gauge misc See Rx Instructions .Route Qty: 200 2RF Rx Instructions: As directed (DME) pen needle, diabetic [1st Tier Unifine Pentips] 31 gauge x 1/4 needle See Rx Instructions .Route Qty: 100 2RF Rx Instructions: As directed alum-mag hydroxide-simeth [Mag-Al Plus Extra Strength] 400-400-40 mg/5 mL Suspension 30 ml PO QID PRN (Reason: acid reflux) Qty: 355 1RF sertraline 50 mg tablet 50 mg PO HS Patient Comments: TAKE ONE TABLET BY MOUTH EVERY DAY insulin glargine 100 unit/mL (3 mL) insulin pen 27 unit subcut HS 30 Days Qty: 15 2RF metformin 500 mg tablet 500 mg PO BIDWMEAL Qty: 60 0RF (DME) FreeStyle Chandan 3 Nicholson Misc See Rx Instructions .ROUTE Qty: 1 0RF Rx Instructions: As directed (DME) FreeStyle Chandan 3 Plus Sensor Device See Rx Instructions .ROUTE Qty: 1 0RF Rx Instructions: As directed aspirin 81 mg tablet,delayed release (DR/EC) 81 mg PO QDAY Qty: 21 0RF clopidogrel [Plavix] 75 mg tablet 75 mg PO QDAY Qty: 30 0RF meclizine 50 mg tablet 50 mg PO BID PRN (Reason: dizziness) Qty: 14 0RF Problem List Clinical Impression: UTI (urinary tract infection), Left breast mass Patient/Caregiver Discharge Instructions Discharge Activity: activity as tolerated Education Materials: ED Tumor, Uncertain Cause, ED CYSTITIS Female Adult Additional Instructions: Discharge instructions from Dr. Conde: 1. After evaluation yesterday, you have severe UTI (see attached handout). Your right sided pain is due to the infection. Tylenol with codeine for severe pain. 2. Take cefdinir to kill the germs causing the infection. 3. For good hydration, increase oral fluid and maintain clear urine. If dark or yellow, increase oral fluid. 4. See a private doctor on 03/21/2025 for recheck and further care. Ask to review all test results and official radiology reports from your two visi ts here, to make sure you receive all necessary follow-ups and monitoring. Including final urine culture results from yesterday and today's CT showing left breast mass. Ask for help with more investigation of your left breast mass, with more imaging studies and referrals to see specialists. 5. Seek immediate medical care with worsening, fever, or with any concerns. Print Language: French Stand Alone Forms: [employer] Award Info., Patient Portal Info Letter
--- NOTE | 2025-03-19 23:53 | XR_ITS ---
Examination: CT chest, without intravenous contrast. CT abdomen, without intravenous contrast. CT pelvis, without intravenous contrast. 2-D sagittal and coronal reconstructions. 3-D reconstructions. Date and time of exam:March 20, 2025, 0030 hrs. Indications: Ground-level fall 2 weeks ago with injury of the chest and abdomen, chest pain abdomen pain CTDI vol (mgy) 6.93 DLP (MGycm)513 Technique: Multiple CT images, 3.0 mm slice thickness, obtained chest, abdomen, pelvis, with the high-resolution 64 slice scanner.. Sagittal and coronal 2-D reconstructions are obtained. 3-D reconstructions Low dose protocols were performed. One or more of the following dose reduction techniques were used; automated exposure control, adjustment of the mA and/or KV according to patient size, use of iterative reconstruction technique. Findings: Thoracic aorta pulmonary arteries intact No hemopericardium Heavy calcification left anterior descending coronary artery No pneumothorax pulmonary contusion or hemothorax Suspicious for nondisplaced fracture left clavicle 18 mm spiculated mass left breast with pathologic left axillary lymphadenopathy Poorly defined soft tissue mass at the gastrointestinal junction and fundus of uterus, axial image 134, measuring at least 4.5 cm in dimension, differential would include gastric carcinoma No liver splenic or renal laceration Contracted gallbladder Aorta intact no free blood in the abdomen or pelvis No hydronephrosis Negative for pneumoperitoneum Retroverted uterus with fundal mass with calcification, at least 4 cm Sternum thoracic lumbar vertebral bodies intact Old rib fractures No thoracic or lumbar fracture. Bones of the pelvis intact Hips intact Impression: 18 mm suspicious mass, spiculated margins lateral left breast with pathologic left axillary lymphadenopathy, highest on the differential list breast carcinoma with metastatic lymphadenopathy Recommend diagnostic mammography, bilateral breast sonography follow-up No pneumothorax pulmonary contusion or hemothorax Poorly defined soft tissue mass at the gastroesophageal junction and fundus of uterus, measuring at least 4.5 cm in thickness, differential would include gastric carcinoma, recommend endoscopy follow-up No abdominal parenchymal laceration Abdominal aorta intact No free blood in the abdomen 4 cm uterine fundal mass, recommend pelvic sonography follow-up
[2025-03-19 23:55] VITALS: BP 132/80; PULSE 76; RESP 18; TEMP 36.9; O2SAT 98
[2025-03-20] MEDS: MORPHINE SULF INJ 4 MG/ML VIAL 8 MG IM (00:40)
--- NOTE | 2025-03-20 01:46 | PRELIM_ITS ---
CT scan of the chest, abdomen and pelvis without intravenous contrast (axial sections with sagittal and coronal reformats). 3D and MIP reconstructed images were also provided. March 20, 2025 0030 hours Clinical History: Right-sided chest/abdominal pain. Comparison: No prior study is available for comparison. Findings: The lungs are hyperinflated, suggestive of chronic obstructive pulmonary disease. Streaky atelectasis and scar are seen in the lungs bilaterally. There is a 3 mm calcified nodule in the right upper lobe (axial image 76/360, series 2). No pneumonic consolidation is seen. There is no pleural effusion or pneumothorax. There is mild wall thickening/cuffing of the segmental bronchi in the lungs bilaterally, predominantly in the lower lobes. The aorta and its branches demonstrate atheromatous calcification without evidence of aneurysm. The main pulmonary arteries are dilated with the pulmonary trunk measuring 3.1 cm, which may represent pulmonary arterial hypertension. No evidence of mediastinal mass or enlarged lymph nodes. Mild cardiomegaly is seen. Coronary artery calcification is noted. Calcified mitral annulus is noted. There is no pericardial effusion. A small hiatal hernia is present. There is mild wall thickening of the distal esophagus/gastroesophageal junction and proximal stomach. No evidence of esophageal obstruction. Calcific densities are seen in the spleen, likely representing calcified granulomas. The adrenals are thickened. Nonspecific perinephric fat stranding is noted bilaterally. No evidence of renal/ureteric calculus or hydroureteronephrosis. The liver, gallbladder and pancreas are unremarkable on this noncontrast study. No evidence of bowel obstruction. The appendix is within normal limits. The colon is nondilated. The urinary bladder is incompletely distended at the time of the examination. Retroverted uterus containing an ill-defined hypodense lesion with rim calcification.No evidence of adnexal mass. Calcific densities are seen in the pelvis, likely representing phleboliths. There is no free fluid or free air. The bones are osteopenic. Osseous degenerative changes are noted. There is an old fracture of the left inferior pubic ramus. No acute rib fracture is seen. There is a small sclerotic lesion in the right fifth rib, of unclear etiology. There are old fractures of the ribs bilaterally with chronic deformities (L>R). A small subcutaneous calcific density is seen in the right anterior mid abdominal wall, nonspecific. There is a 1.5 x 1.7 cm soft tissue nodule in the left breast with a slightly irregular margin (axial image 90/360, series 2). Mildly enlarged left axillary lymph nodes are seen, the largest measuring 1.2 cm in short axis. Impression: 1. A 1.5 x 1.7 cm soft tissue nodule in the left breast with a slightly irregular margin, suspicious for a malignant neoplasm. 2. Few mildly enlarged left axillary lymph nodes, suspicious for metastases. 3. Retroverted uterus containing an ill-defined hypodense lesion with rim calcification. Recommend further evaluation. 4. No pneumonic consolidation or pleural effusion. 5. Mild wall thickening of the distal esophagus/gastroesophageal junction and proximal stomach, which may represent reflux esophagitis or other pathology. 6. No evidence of bowel obstruction. 7. No evidence of renal/ureteric calculus or hydroureteronephrosis. 8. No evidence of acute appendicitis. 9. No acute fracture. 10. Other findings as described above. Suggest clinical correlation, comparison with prior studies, follow up or further evaluation as clinically indicated. Report Electronically Signed By: Antonio Mireles 03/20/2025 1:45:19 AM [EST]
[2025-03-20] MEDS: cefTRIAXone 1,000 MG, LIDOCAINE 1% 20 ML 2.1 ML IM (02:24)
[2025-03-20 02:33] VITALS: RESP 18
== END 2025-03-20 02:33 | disposition home or self-care (01) ==
LOC: SERX 03-20 02:49
PROVIDERS: Emergency Provider Emergency Medicine; PCP Family Medicine
DX: N39.0 Urinary tract infection, site not specified (principal); N63.20 Unspecified lump in the left breast, unspecified quadrant; F41.9 Anxiety disorder, unspecified; J45.909 Unspecified asthma, uncomplicated; I25.10 Atherosclerotic heart disease of native coronary artery without angina pectoris; I10 Essential (primary) hypertension; E78.00 Pure hypercholesterolemia, unspecified; E11.9 Type 2 diabetes mellitus without complications; F32.A Depression, unspecified; Z88.0 Allergy status to penicillin
CPT/HCPCS: 71250; 74176; 96372; 99283; J0696; J2270; J3490

== ENCOUNTER 2025-03-22 09:15 | Emergency (ER) | payer OTHER, SELFPAY ==
--- NOTE | 2025-03-22 09:52 | PD.EDRME ---
Rapid Medical Screening Exam RME Arrival date/time: 03/22/25 09:15 74-year-old female with a history of type 2 diabetes, hypertension, presents to the emergency room with a chief complaint of right-sided flank pain and dysuria. Patient states she was seen in the emergency room 3 days ago and was given oral antibiotics but her symptoms of gotten worse. I have greeted and performed a focused initial assessment of this patient. A comprehensive ED assessment and evaluation of the patient, analysis of all test results, and completion of the medical decision making process will be conducted by additional ED providers. Chief Complaint: Back Pain/Injury Time Seen by Provider: 03/22/25 09:44 Vital signs reviewed by provider: Yes
[2025-03-22 09:53] VITALS: BP 172/76; PULSE 76; RESP 18; TEMP 37.1; O2SAT 96
[2025-03-22] MEDS: KETOROLAC INJ 60 MG/2 ML VIAL 30 MG IM (09:53)
[2025-03-22 10:39] LABS: Basophils # (Auto) 0.1 Thou/mm3 (0.0-0.2); Basophils % (Auto) 1 % (0-2.5); Eosinophils # (Auto) 0.3 Thou/mm3 (0.0-0.5); Eosinophils % (Auto) 3 % (0-10); Hematocrit 38.0 % (36.0-46.0); Hemoglobin 12.5 g/dL (12.0-16.0); Immature Granulocytes Auto 0.04 Thou/mm3 (0.00-0.00); Lymphocytes # (Auto) 2.0 Thou/mm3 (1.0-4.8); Lymphocytes % (Auto) 19 % (10-50); Mean Corpuscular HGB Conc 32.9 g/dl (31.0-37.0); Mean Corpuscular Hemoglobin 30.1 pg (25.0-35.0); Mean Corpuscular Volume 92 fL (80-100); Monocytes # (Auto) 0.9 Thou/mm3 (0.0-0.8); Monocytes % (Auto) 9 % (0-12); Neutrophils # (Auto) 7.2 Thou/mm3 (1.8-7.7); Neutrophils % (Auto) 69 % (37-80); Nucleated Red Blood Cell # 0.00 Thou/mm3 (0.00-0.00); Nucleated Red Blood Cell % 0 /100 WBC (0); Platelet Count 196 Thou/mm3 (140-440); RDW Standard Deviation 43.8 fL (36.4-46.3); Red Blood Count 4.15 Miln/mm3 (4.00-5.20); White Blood Count 10.4 Thou/mm3 (3.6-11.0)
[2025-03-22 11:00] LABS: Alanine Aminotransferase 12 U/L (10-49); Albumin, Serum 4.2 gm/dL (3.4-4.8); Albumin/Globulin Ratio 1.6 (1.2-2.2); Alkaline Phosphatase 83 U/L (46-116); Amylase 94 U/L (30-118); Anion Gap 11 (7-16); Aspartate Amino Transferase 19 U/L (0-34); BUN/Creatinine Ratio 18 Ratio (12-20); Bilirubin,Total 0.7 mg/dL (0.3-1.2); Blood Urea Nitrogen 14 mg/dL (9-23); Calcium 10.5 mg/dL (8.3-10.6); Calcium (Corrected) 10.5 mg/dL (8.5-10.1); Carbon Dioxide 26.4 mMol/L (20.0-31.0); Chloride 108 mMol/L (98-107); Creatinine (Component) 0.8 mg/dL (0.6-1.3); Globulin 2.6 gm/dL (2.3-3.5); Glucose 114 mg/dL (74-106); Osmolality,Calculated 290 (275-295); Potassium 4.3 mMol/L (3.4-5.1); Sodium 145 mMol/L (136-145); Total Protein 6.8 gm/dL (5.7-8.2); eGFR > 60 See Note
[2025-03-22 11:40] LABS: Collection Type, Urine Clean Catch
--- NOTE | 2025-03-22 12:00 | PC.NURSE ---
LOOKED FOR PT TO ASSESS PAIN LEVEL AND PT DID NOT ANSWER. PT SEEN GETTING INTO WHITE SUV BY SECURITY AT 11:35. PT ELOPED.
[2025-03-22 12:08] LABS: Bacteria,Urine Rare; Bilirubin,Urine Negative (Negative); Blood,Urine 2+ (Negative); Color,Urine Lt-Yellow (Lt Yel-Yel); Glucose, Urine Negative (Negative); Ketones,Urine Negative (Negative); Leukocyte Esterase,Urine Positive (Negative); Nitrite,Urine Negative (Negative); PH,Urine 5.5 (5.0-7.0); Protein,Urine Negative (Neg - Trace); RBC,Urine 10 /hpf (0-3); Specific Gravity,Urine 1.013 (1.001-1.035); Squamous Epithelial Cell,Urine 4 /hpf (0-5); Urobilinogen,Urine Negative mg/dL (0.0-1.0); WBC,Urine 128 /hpf (0-5)
[2025-03-22 12:33] LABS: Clarity,Urine Hazy (Clear/Hazy)
== END 2025-03-22 12:05 | disposition left against medical advice (07) ==
PROVIDERS: Nurse Practitioner Family; Emergency Provider Emergency Medicine; PCP Emergency Medicine
DX: R10.9 Unspecified abdominal pain (principal); E11.9 Type 2 diabetes mellitus without complications; I10 Essential (primary) hypertension; R30.0 Dysuria; Z53.29 Procedure and treatment not carried out because of patient's decision for other reasons
CPT/HCPCS: 36415; 80053; 81001; 82150; 85025; 87077; 87086; 87186; 96372; 99283; J1885

== ENCOUNTER 2025-04-05 06:09 | Emergency (ER) | payer OTHER, SELFPAY ==
[2025-04-05 06:17] VITALS: PULSE 84; RESP 16; O2SAT 97; BMI 25.8
[2025-04-05 06:22] VITALS: BP 140/72; PULSE 73; RESP 20; TEMP 37.1; O2SAT 100
--- NOTE | 2025-04-05 06:52 | XR_ITS ---
EXAMINATION: AP pelvis single view TECHNIQUE: AP portable supine pelvis single view Date and time: April 05, 2025, 0717 hours INDICATIONS: Patient fell today with injury to the right hip, right hip pain. FINDINGS: Prominent osteopenia. No right or left hip fracture or dislocation noted Old appearing fracture left inferior pubic ramus but clinical correlation advised IMPRESSION: No definite acute hip or pelvic fracture, as clinically warranted, recommend 1 to 2-day follow-up AP pelvis
--- NOTE | 2025-04-05 06:52 | XR_ITS ---
Examination: Ribs, right, with PA chest, 5 views Technique: Chest PA, RIBS AP, RPO, LPO, AP coned lower ribs 5 views Exam date and time: April 05, 2025, 0708 hours Findings: No significant cardiac enlargement No pneumothorax Prominent osteopenia No acute rib fractures IMPRESSION: No pneumothorax pulmonary contusion or hemothorax No acute rib fractures
--- NOTE | 2025-04-05 06:53 | XR_ITS ---
Examination: CT cervical spine without contrast 2-D sagittal reconstructions 2-D coronal reconstructions 3-D reconstructions. Exam date and time: April 05, 2025, 0838 hours INDICATIONS: Ground-level fall today with injury to the neck, neck pain COMPARISON: February 23, 2025 CTDI:vol (mGy) 13.8 DLP: (mGycm) 324 Technique: Multiple 2 mm axial sections of the cervical spine have been obtained. The coronal and sagittal reconstructions have been obtained. 3-D reconstructions have been obtained. Low dose protocols were performed. One or more of the following dose reduction techniques were used; automated exposure control, adjustment of the mA and/or KV according to patient size, use of iterative reconstruction technique. Findings: Axial sections demonstrate intact base of the skull. C1 exhibit satisfactory relationship to the odontoid. No acute cervical vertebral body fracture seen. Alignment posterior spinous processes satisfactory. Impression: No acute cervical fracture.
--- NOTE | 2025-04-05 06:53 | XR_ITS ---
Examination: CT brain head without contrast. 2-D sagittal coronal reconstructions Date and time of exam: April 05, 2025, 0839 hours INDICATIONS: Ground-level fall today with injury to the head and neck, head pain CTDI: vol (mGy): 49.9 DLP: (mGycm): 1083 Technique: Multiple CT axial sections of the brain have been obtained, 5 mm slice thickness. Contrast has not been administered. 2-D sagittal, coronal reconstructions have been obtained Low dose protocols were performed. One or more of the following dose reduction techniques were used; automated exposure control, adjustment of the mA and/or KV according to patient size, use of iterative reconstruction technique. Findings: No significant ventricular enlargement. Intra-axial or extra-axial hemorrhage density is not seen. No mass effect or midline shift Basal cisterns are not remarkable. Fourth ventricle is midline. Cranial vault intact. Impression: Negative for acute hemorrhage, mass effect or midline shift
[2025-04-05 06:54] VITALS: PULSE 64
--- NOTE | 2025-04-05 06:54 | EKG_ITS ---
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
[2025-04-05] MEDS: ACETAMINOPHEN 500 MG TABLET 1000 MG PO (06:59)
--- NOTE | 2025-04-05 07:05 | PC.NURSE ---
Pt. here from home to room 18, X ray Matt in room talking with pt., pt. states sge
--- NOTE | 2025-04-05 07:05 | PC.NURSE ---
Pt. here from home to room 18, Matt with X ray in the room talking with pt. and pt. states dre
--- NOTE | 2025-04-05 07:05 | PC.NURSE ---
Pt. here from home to room 18, Matt with X ray in the room talking with pt., pt. states she can stand for an X ray, pt. holding her right ribs, pt. states she received Tylenol and it helped her. Pt. states she fell asleep and fell from walker. Pt. will go to X ray with Matt.
[2025-04-05 07:10] VITALS: BP 166/77; PULSE 66; RESP 17; TEMP 36.4; O2SAT 99
[2025-04-05 07:16] LABS: Basophils # (Auto) 0.1 Thou/mm3 (0.0-0.2); Basophils % (Auto) 1 % (0-2.5); Eosinophils # (Auto) 0.2 Thou/mm3 (0.0-0.5); Eosinophils % (Auto) 1 % (0-10); Hematocrit 38.6 % (36.0-46.0); Hemoglobin 12.3 g/dL (12.0-16.0); Immature Granulocytes Auto 0.05 Thou/mm3 (0.00-0.00); Lymphocytes # (Auto) 1.7 Thou/mm3 (1.0-4.8); Lymphocytes % (Auto) 15 % (10-50); Mean Corpuscular HGB Conc 31.9 g/dl (31.0-37.0); Mean Corpuscular Hemoglobin 29.3 pg (25.0-35.0); Mean Corpuscular Volume 92 fL (80-100); Monocytes # (Auto) 0.7 Thou/mm3 (0.0-0.8); Monocytes % (Auto) 7 % (0-12); Neutrophils # (Auto) 8.7 Thou/mm3 (1.8-7.7); Neutrophils % (Auto) 76 % (37-80); Nucleated Red Blood Cell # 0.00 Thou/mm3 (0.00-0.00); Nucleated Red Blood Cell % 0 /100 WBC (0); Platelet Count 202 Thou/mm3 (140-440); RDW Standard Deviation 43.8 fL (36.4-46.3); Red Blood Count 4.20 Miln/mm3 (4.00-5.20); White Blood Count 11.4 Thou/mm3 (3.6-11.0)
[2025-04-05 07:30] LABS: INR 1.0 (0.9-1.3); Partial Thromboplastin Time 24.7 Seconds (22.0-36.0); Prothrombin Time 10.4 Seconds (9.0-12.2)
[2025-04-05 07:36] LABS: Alanine Aminotransferase 12 U/L (10-49); Albumin, Serum 4.1 gm/dL (3.4-4.8); Albumin/Globulin Ratio 1.6 (1.2-2.2); Alkaline Phosphatase 84 U/L (46-116); Anion Gap 8 (7-16); Aspartate Amino Transferase 17 U/L (0-34); BUN/Creatinine Ratio 17 Ratio (12-20); Bilirubin,Total 0.4 mg/dL (0.3-1.2); Blood Urea Nitrogen 12 mg/dL (9-23); Calcium 9.5 mg/dL (8.3-10.6); Calcium (Corrected) 9.5 mg/dL (8.5-10.1); Carbon Dioxide 27.3 mMol/L (20.0-31.0); Chloride 108 mMol/L (98-107); Creatinine (Component) 0.7 mg/dL (0.6-1.3); Estimated Creatinine Clearance 73.0 mL/min (>60); Globulin 2.6 gm/dL (2.3-3.5); Glucose 153 mg/dL (74-106); Lipase 40 U/L (12-53); Magnesium 2.3 mg/dL (1.6-2.6); Osmolality,Calculated 287 (275-295); Potassium 4.4 mMol/L (3.4-5.1); Sodium 143 mMol/L (136-145); Total Protein 6.7 gm/dL (5.7-8.2); eGFR > 60 See Note
[2025-04-05 07:39] LABS: Troponin I 0.080 ng/mL (0.0-0.045)
[2025-04-05 07:43] LABS: B-Type Natriuretic Peptide 49 pg/mL (0-100)
[2025-04-05 09:38] VITALS: BP 162/78; PULSE 61; RESP 19; O2SAT 98
--- NOTE | 2025-04-05 12:30 | PD.EDFALL ---
ED Fall Injury RME/HPI General Chief Complaint: Head Injury Stated Complaint: HIP PAIN Time Seen by Provider: 04/05/25 06:50 Arrival date/time: 04/05/25 06:09 RME / HPI RME / HPI Narrative: 74 year old female patient with history of CVA, hypertension, diabetes, hyperlipidemia presents to the ED BIBA from home for complaint of headache and right hip pain following a ground level fall. The hip pain is described as aching in sensation that is aggravated with movements, rating 7/10. Headache also described as aching in sensation that is located diffusely, rating 4/10. No LOC reported. No other associated symptoms or complaints. Related Data Home Medications ?Medication ?Instructions ?Recorded ?Confirmed lisinopril 20 mg tablet 40 mg PO DAILY 06/09/21 04/14/24 sertraline 50 mg tablet 50 mg PO HS 04/14/24 04/14/24 Previous Rx's ?Medication ?Instructions ?Recorded blood sugar diagnostic (Accu-Chek #100 ea 08/26/22 SmartView Test Strips) blood-glucose meter (OneTouch #1 ea 08/26/22 Solutions Starter kit) lancets 23 gauge (Acti-Jag #200 ea 08/26/22 Lancets) pen needle, diabetic 31 gauge x #100 ea 08/26/2207/03 (1st Tier Unifine Pentips) aluminum-mag hydroxide-simethicone 30 ml PO QID PRN acid reflux #355 09/30/22 400 mg-400 mg-40 mg/5 mL oral susp mL (Mag-Al Plus Extra Strength) meclizine 50 mg tablet 50 mg PO BID PRN dizziness #14 tabs 04/12/24 blood-glucose sensor (FreeStyle #1 ea 04/17/24 Chandan 3 Plus Sensor device) blood-glucose,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 technician,cont #1 ea 04/17/24 (FreeStyle Chandan 3 Cashiers) insulin glargine 100 unit/mL (3 27 unit (0.27 mL) subcut HS 30 04/17/24 mL) subcutaneous pen days #15 mL metformin 500 mg tablet 500 mg PO BIDWMEAL #60 tabs 04/17/24 aspirin 81 mg tablet,delayed 81 mg PO QDAY #21 tabs 04/19/24 release clopidogrel 75 mg tablet (Plavix) 75 mg PO QDAY #30 tabs 04/19/24 acetaminophen 300 mg-codeine 30 mg 2 tab PO Q8H PRN pain #20 tabs 03/20/25 tablet cefdinir 300 mg capsule 300 mg PO BID #14 caps 03/20/25 Allergies Allergy/AdvReac Type Severity Reaction Status Date / Time Penicillins Allergy Severe Hives Verified 04/05/25 06:16 Review of Systems Review of Systems Systems Reviewed: All systems reviewed, normal except as documented Past Medical History Past Medical History CARDIAC: Positive Cardiac Disorders, Atherosclerotic Heart Disease, Hypercholesterolemia and Hypertension RESPIRATORY: Positive Asthma MUSCULOSKELETAL: Positive Fractures ENDOCRINE: Positive Diabetes Mellitus Type 2 PSYCHO/SOCIAL: Positive Depression and Anxiety OTHER HISTORY: Positive Hospitalization and Falls Family History FAMILY HISTORY: Positive Family Cardiac Disorders Social History SMOKING STATUS: Never smoker SECOND HAND EXPOSURE: Yes ED Exam Narrative Physical exam: GENERAL APPEARANCE: alert and oriented x 4, well-developed, well-nourished, no acute distress HEENT: Normocephalic, atraumatic; pupils equal, round, reactive to light; EOMI; mucous membranes pink, moist; oropharynx clear NECK: Supple LUNGS: CTABL; no wheezes, no rales, no rhonchi HEART: Regular rate, regular rhythm; normal S1, S2; no murmurs ABDOMEN: non distended; normal BS; soft, no tenderness, no guarding, no rebound; no masses, no organomegaly, no hernia BACK: no CVA tenderness EXTREMITIES: abrasion right lower leg, skin tear to the right lower wrist; no edema NEUROLOGIC: awake; alert and oriented x4; cranial nerves II-XII grossly intact; no focal sensory or motor deficits PSYCHIATRIC: appropriate mood and affect SKIN: warm, dry, normal color; no rashes Course Quality Measures none Orders Category Date Time Status Bedside COVID-19 Antigen Test NOW Care 04/05/25 06:54 Completed Bedside Influenza A&B Antigen Test NOW Care 04/05/25 06:54 Completed Wig Maker NOW Care 04/05/25 06:54 Completed EKG (ED ONLY) *Do not use* NOW Care 04/05/25 06:[address] cervical spine wo con Stat Exams 04/05/25 06:[address] head/brain wo con Stat Exams 04/05/25 06:53 Completed EKG (ED Only) Stat Exams 04/05/25 06:54 Draft XR pelvis 1-2V Stat Exams 04/05/25 06:52 Completed XR ribs RT min 3V w CXR1V Stat Exams 04/05/25 06:52 Completed B-Type Natriuretic Peptide Stat Lab 04/05/25 07:04 Completed CBC Stat Lab 04/05/25 07:04 Completed Comprehensive Metabolic Panel Stat Lab 04/05/25 07:04 Completed Lipase Stat Lab 04/05/25 07:04 Completed Magnesium Stat Lab 04/05/25 07:04 Completed Partial Thromboplastin Time Stat Lab 04/05/25 07:04 Completed Prothrombin Time with INR Stat Lab 04/05/25 07:04 Completed Troponin I Stat Lab 04/05/25 07:04 Completed Acetaminophen Tab [Tylenol ES Tab] Med 04/05/25 06:52 Discontinued 1,000 mg PO X1 ONE Vital Signs Vital signs: Vital Signs Temperature 98.7 F 04/05/25 06:22 Pulse Rate 73 04/05/25 06:22 Respiratory Rate 20 04/05/25 06:22 Blood Pressure 140/72 H 04/05/25 06:22 Pulse Oximetry (%) 100 04/05/25 06:22 Oxygen Delivery Method Room Air 04/05/25 06:22 Pulse ox is 100% on room air which is adequate. Fall MDM Narrative MDM Narrative:: Shelbie Vital am scribing for and in the presence of Dr. Pina. Patient data External records reviewed:: [facility] previous records and EMS form Clinical information provided by:: patient Social determinants that could affect healthcare access:: none Patient has the following chronic illnesses:: CVA, hypertension, diabetes, hyperlipidemia How is presenting disease/condition affected by chronic disease/condition?: exacerbated by Evaluation data The following diagnostics were reviewed and interpreted by me:: lab results, radiology exam(s) and EKG tracing(s) (EKG @ 07:25 AM. Normal sinus rhythm, rate 66, no STEMI. ) Lab and/or radiology exams considered but not ordered:: None Interpretation Summary: Ordering Physician: Marcie Pina MD Date of Service: 04/05/25 Procedure(s): XR pelvis 1-2V Accession Number(s): [id number] cc: Jovanny Jackson MD; Forrest Rodriguez MD; Marcie Pina MD~ EXAMINATION: AP pelvis single view TECHNIQUE: AP portable supine pelvis single view Date and time: April 05, 2025, 0717 hours INDICATIONS: Patient fell today with injury to the right hip, right hip pain. FINDINGS: Prominent osteopenia. No right or left hip fracture or dislocation noted Old appearing fracture left inferior pubic ramus but clinical correlation advised IMPRESSION: No definite acute hip or pelvic fracture, as clinically warranted, recommend 1 to 2-day follow-up AP pelvis Dictated By: Forrest Rodriguez MD Signed By: <Electronically signed by Forrest Rodriguez MD in OV> 04/05/25 1104 Ordering Physician: Marcie Pina MD Date of Service: 04/05/25 Procedure(s): XR ribs RT min 3V w CXR1V Accession Number(s): [id number] cc: Jovanny Jackson MD; Forrest Rodriguez MD; Marcie Pina MD~ Examination: Ribs, right, with PA chest, 5 views Technique: Chest PA, RIBS AP, RPO, LPO, AP coned lower ribs 5 views Exam date and time: April 05, 2025, 0708 hours Findings: No significant cardiac enlargement No pneumothorax Prominent osteopenia No acute rib fractures IMPRESSION: No pneumothorax pulmonary contusion or hemothorax No acute rib fractures Dictated By: Forrest Rodriguez MD Signed By: <Electronically signed by Forrest Rodriguez MD in OV> 04/05/25 1055 Ordering Physician: Marcie Pina MD Date of Service: 04/05/25 Procedure(s): CT cervical spine wo con Accession Number(s): [id number] cc: Jovanny Jackson MD; Forrest Rodriguez MD; Marcie Pina MD~ Examination: CT cervical spine without contrast 2-D sagittal reconstructions 2-D coronal reconstructions 3-D reconstructions. Exam date and time: April 05, 2025, 0838 hours INDICATIONS: Ground-level fall today with injury to the neck, neck pain COMPARISON: February 23, 2025 CTDI:vol (mGy) 13.8 DLP: (mGycm) 324 Technique: Multiple 2 mm axial sections of the cervical spine have been obtained. The coronal and sagittal reconstructions have been obtained. 3-D reconstructions have been obtained. Low dose protocols were performed. One or more of the following dose reduction techniques were used; automated exposure control, adjustment of the mA and/or KV according to patient size, use of iterative reconstruction technique. Findings: Axial sections demonstrate intact base of the skull. C1 exhibit satisfactory relationship to the odontoid. No acute cervical vertebral body fracture seen. Alignment posterior spinous processes satisfactory. Impression: No acute cervical fracture. Dictated By: Forrest Rodriguez MD Signed By: <Electronically signed by Forrest Rodriguez MD in OV> 04/05/25 1036 Ordering Physician: Marcie Pina MD Date of Service: 04/05/25 Procedure(s): CT head/brain wo con Accession Number(s): [id number] cc: Jovanny Jackson MD; Forrest Rodriguez MD; Marcie Pina MD~ Examination: CT brain head without contrast. 2-D sagittal coronal reconstructions Date and time of exam: April 05, 2025, 0839 hours INDICATIONS: Ground-level fall today with injury to the head and neck, head pain CTDI: vol (mGy): 49.9 DLP: (mGycm): 1083 Technique: Multiple CT axial sections of the brain have been obtained, 5 mm slice thickness. Contrast has not been administered. 2-D sagittal, coronal reconstructions have been obtained Low dose protocols were performed. One or more of the following dose reduction techniques were used; automated exposure control, adjustment of the mA and/or KV according to patient size, use of iterative reconstruction technique. Findings: No significant ventricular enlargement. Intra-axial or extra-axial hemorrhage density is not seen. No mass effect or midline shift Basal cisterns are not remarkable. Fourth ventricle is midline. Cranial vault intact. Impression: Negative for acute hemorrhage, mass effect or midline shift Dictated By: Forrest Rodriguez MD Signed By: <Electronically signed by Forrest Rodriguez MD in OV> 04/05/25 1034 Medications / Prescriptions Medications or Prescriptions considered but not ordered:: None Medication administrations:: Medication Administration History Discontinued Medications Acetaminophen (Acetaminophen 500 Mg Tablet) 1,000 mg PO X1 ONE Stop: 04/05/25 06:53 Last Admin: 04/05/25 06:59 Dose: 1,000 mg Documented By: CB See above Consultations Consultation(s) initiated? (list below): No Diagnosis Fall Differential Diagnosis: syncope, dislocation of shoulder region, fracture of wrist, compression fracture, concussion with loss of consciousness and concussion without loss of consciousness Most likely diagnosis given after review of the tests above:: Fall Abrasion head injury Neck pain rib pain on the rigth side Near syncope Admission Indicated Admission indicated?: not indicated Admission Request Was there a request for admission?: No Disposition Plan Disposition Plan: Discharge Discharge Attestation Discharge Attestation: The patient and all family members were given an opportunity to ask questions and understood the discharge instructions. Discharge instructions specifically effects, indications for sooner follow up or return to the emergency department, and the expected course of current diagnosis. Patient condition: Stable Discharge Plan Plan Patient Disposition: HOME (Self Care) Prescriptions/Referrals Prescriptions/Med Rec: No Action lisinopril 20 mg tablet 40 mg PO DAILY (DME) blood-glucose meter [Shortlist Starter] Kit See Rx Instructions .Route Qty: 1 0RF Rx Instructions: As directed (DME) Accu-Chek SmartView Test Strip Strip See Rx Instructions .Route Qty: 100 2RF Rx Instructions: As directed (DME) Acti-Jag Lancets 23 gauge misc See Rx Instructions .Route Qty: 200 2RF Rx Instructions: As directed (DME) pen needle, diabetic [1st Tier Unifine Pentips] 31 gauge x 1/4 needle See Rx Instructions .Route Qty: 100 2RF Rx Instructions: As directed alum-mag hydroxide-simeth [Mag-Al Plus Extra Strength] 400-400-40 mg/5 mL Suspension 30 ml PO QID PRN (Reason: acid reflux) Qty: 355 1RF sertraline 50 mg tablet 50 mg PO HS Patient Comments: TAKE ONE TABLET BY MOUTH EVERY DAY insulin glargine 100 unit/mL (3 mL) insulin pen 27 unit subcut HS 30 Days Qty: 15 2RF metformin 500 mg tablet 500 mg PO BIDWMEAL Qty: 60 0RF (DME) FreeStyle Chandan 3 Cashiers Misc See Rx Instructions .ROUTE Qty: 1 0RF Rx Instructions: As directed (DME) FreeStyle Chandan 3 Plus Sensor Device See Rx Instructions .ROUTE Qty: 1 0RF Rx Instructions: As directed aspirin 81 mg tablet,delayed release (DR/EC) 81 mg PO QDAY Qty: 21 0RF clopidogrel [Plavix] 75 mg tablet 75 mg PO QDAY Qty: 30 0RF meclizine 50 mg tablet 50 mg PO BID PRN (Reason: dizziness) Qty: 14 0RF acetaminophen-codeine 300-30 mg tablet 2 tab PO Q8H MDD 6 PRN (Reason: pain) Qty: 20 0RF cefdinir 300 mg capsule 300 mg PO BID Qty: 14 0RF Problem List Clinical Impression: Fall, Abrasion, Head injury, Neck pain, Rib pain on right side, Near syncope Patient/Caregiver Discharge Instructions Education Materials: ED Near-Fainting, Uncertain Cause, ED Fall Dizziness Weakn Balance Print Language: Khmer Stand Alone Forms: Kaylin Award Info., Patient Portal Info Letter
[2025-04-05 12:37] VITALS: BP 160/77; PULSE 60; RESP 19; TEMP 36.9; O2SAT 99
== END 2025-04-05 12:38 | disposition home or self-care (01) ==
PROVIDERS: Emergency Provider Emergency Medicine; PCP Family Medicine
DX: S61.511A Laceration without foreign body of right wrist, initial encounter (principal); S80.811A Abrasion, right lower leg, initial encounter; S09.90XA Unspecified injury of head, initial encounter; S19.9XXA Unspecified injury of neck, initial encounter; S79.911A Unspecified injury of right hip, initial encounter; R07.89 Other chest pain; R55 Syncope and collapse; W18.30XA Fall on same level, unspecified, initial encounter; I10 Essential (primary) hypertension; E78.00 Pure hypercholesterolemia, unspecified; Z57.31 Occupational exposure to environmental tobacco smoke
CPT/HCPCS: 36415; 70450; 71101; 72125; 72170; 80053; 83690; 83735; 83880; 84484; 85025; 85610; 85730; 87400; 87811; 93005; 99284; A9270